=== PATIENT | female | born 1960 | race Caucasian/White ===

== ENCOUNTER 2022-01-07 17:25 | Emergency (ER) | payer OTHER, BC, SELFPAY ==
[2022-01-07 18:05] VITALS: BP 142/70; PULSE 71; RESP 18; TEMP 36.2; O2SAT 99; BMI 27.4
[2022-01-07 18:21] VITALS: BP 142/70; PULSE 71; RESP 18; O2SAT 99
--- NOTE | 2022-01-07 18:38 | ED_ITS ---
HPI - General Adult General: Chief complaint: General Medical Stated complaint: thinks its a rx to new meds, swelling in legs Time Seen by Provider: 01/07/22 18:11 History of Present Illness: Patient is a 61-year-old female comes to the ED with bilateral lower extremity swelling. Symptoms started approximately 3 days ago. Denies any shortness of breath, chest pain or hemoptysis. Patient has neuropathy in both of her legs which causes some pain and she was recently started on Lyrica back on December 30 by her PCP. She then saw her PCP again after leg swelling started and they told her it is likely due to the Lyrica and put her on a diuretic to help with the edema. She still having some pain and swelling and took her first dose of diuretic today. Associated symptoms: Deny chest pain, dyspnea, headache(s), nausea, rash, palpitations or vomiting Review of Systems Const: Denies: fever(s), chills or fatigue Eyes: Denies: change in vision or eye discomfort ENMT: Denies: throat pain, odynophagia, nasal discharge or nasal congestion Card: Reports: edema (Bilateral lower extremity edema.); Denies: chest pain, palpitations, swelling of feet/ankles, dyspnea on exertion or orthopnea Resp: Denies: dyspnea, productive cough or non-productive cough GI: Denies: abdominal pain, nausea, vomiting, diarrhea, constipation or hematochezia : Denies: flank pain, dysuria or hematuria Musc: Denies: neck pain, back pain or extremity swelling Skin/Breast: Denies: rash or new lesions Neuro: Denies: headache(s), numbness in extremities or weakness in extremities [facility] ED PFSH: Medical History Diabetes Neuropathy No pertinent family history Physical Exam Const: COMMON NORMALS: no acute distress, patient oriented x3 and alert GENERAL APPEARANCE: cooperative and comfortable HENMT: COMMON NORMALS: normocephalic HEAD & SCALP: normocephalic MOUTH: Normal oral and palatal mucosa present THROAT: posterior oropharynx normal and uvula midline Neck/C-Spine: COMMON NORMALS: supple GENERAL: Yes normal visual inspection Resp: COMMON NORMALS: normal respiratory effort, No retractions, No use of accessory muscles and clear to auscultation bilaterally AUSCULTATION: clear to auscultation bilaterally Cardio: COMMON NORMALS: regular rate, regular rhythm, S1 normal heart sound present, S2 normal heart sound present, No gallops present (Cardio), No clicks present (Cardio), No murmurs present (Cardio) and Peripheral pulses 2+ throughout RATE: regular rate RHYTHM: regular rhythm HEART SOUNDS: S1 normal heart sound present and S2 normal heart sound present PERIPHERAL PULSES: Peripheral pulses 2+ throughout GI: COMMON NORMALS: Normal to inspection, nondistended, normoactive bowel sounds present, Soft to palpation, non-tender and no masses PALPATION: Yes Soft to palpation : COMMON NORMALS: Yes no CVA tenderness BLADDER/KIDNEY EXAM: Yes no CVA tenderness Back/Pelvis: COMMON NORMALS: no CVA tenderness Extremity: NARRATIVE EXTREMITY EXAM: Patient has bilateral lower extremity edema that is nonpitting. Neuro: COMMON NORMALS: patient oriented x3 and moves all extremities SENSORIUM/ORIENTATION: Yes alert Skin: GENERAL SKIN EXAM: dry skin Course Vital Signs: Vital signs: Vital Signs Temperature 97.2 F L 01/07/22 18:05 Pulse Rate 71 01/07/22 18:21 Respiratory Rate 18 01/07/22 18:21 Blood Pressure 142/70 01/07/22 18:21 Pulse Oximetry 99 01/07/22 18:21 [facility] - General Adult Medical Decision Making Patient is a 59-year-old female comes to the ED with bilateral lower extremity swelling. Symptoms started shortly after she started taking Lyrica. She has a history of diabetes and peripheral neuropathy. Patient saw her PCP and they told her bilateral lower extremity swelling is likely due to side effect of her Lyrica medication. She was given a prescription of a diuretic to help with the swelling. She took her first dose today. Denies any chest pain, shortness of breath or hemoptysis. Patient appears nontoxic in no acute distress or pain. Vitals are stable. She has some mild nonpitting edema to bilateral lower extremities. The rest of exam is benign. Patient was diagnosed of medication side effect of bilateral lower extremity edema. She was told to continue taking her diuretic to help with edema. Follow-up with PCP in the next week for reevaluation. Return ED precautions given. Patient understood and agreed with plan. Discharge Plan Discharge Patient Disposition: Home Clinical Impression: Medication side effect, Bilateral lower extremity edema Condition: Stable Prescriptions: New Celebrex 100 mg capsule 100 mg PO BID PRN (Reason: pain) Qty: 20 0RF Discharge Orders: Discharge ED (Routine); Ordered 01/07/22 Ordered By: Mikie Martinez Referrals: Conchita Dewey MD [Primary Care Provider] - Discharge Diet: Regular Discharge Activity: Increase activity as tolerated Patient Instructions: Leg Edema (ED), Adverse Drug Reaction (ED) Activity Restrictions/Additional Instructions: Follow-up with medical provider as directed in the next 3 to 5 days reevaluation. Take medications as prescribed. Elevate legs throughout the day to help with swelling. You can wear compression stockings as well to help with leg edema. Continue taking your previously prescribed diuretic to help with swelling as well. Return to the ER or your medical provider if condition worsens. Please read and understand discharge instructions. Thank you for choosing [facility] for your healthcare needs today. Please realize this is an emergency room and that we are providing you with a medical screening exam and this may not be complete and all inclusive of all the testing and or work up that you may need to determine your ailment or severity of your illness. It is very important that you follow up as instructed or that you return to the Emergency Department should you have concerns or if your condition changes or worsens in any way. Coding Level of Care Code ED Broaching Machine Operator for [place] Fwfredis Exam Comprehensive
[2022-01-07] MEDS: HYDROcodone-acetaminophen 7.5-325 mg Tablet 1 TAB PO (18:46)
[2022-01-07] MEDS: dexamethasone 10 mg/mL INJ IM (18:48)
== END 2022-01-07 19:01 | disposition home or self-care (01) ==
PROVIDERS: Emergency Provider Physician Assistant; PCP Family Medicine
DX: M79.89 Other specified soft tissue disorders (principal); T42.6X5A Adverse effect of other antiepileptic and sedative-hypnotic drugs, initial encounter; E11.42 Type 2 diabetes mellitus with diabetic polyneuropathy
CPT/HCPCS: 96372; 99283; J1100

== ENCOUNTER 2022-09-01 08:30 | Emergency (ER) | payer BC, MEDICAID, SELFPAY ==
[2022-09-01 08:43] VITALS: BP 154/126; PULSE 68; RESP 16; TEMP 36.7; O2SAT 98
--- NOTE | 2022-09-01 09:05 | ED_ITS ---
HPI - Extremity Problem General: Chief complaint: Extremity Problem,Nontraumatic Stated complaint: left foot pain Time Seen by Provider: 09/01/22 08:33 Source: patient Mode of arrival: ambulatory Limitations: no limitations History of Present Illness: Patient is a 61-year-old female presents to ED today with complaint of left foot and ankle pain over the past 2 days. Patient states she has had similar pains previously that she attributes to neuropathy . Patient states she is a diabetic. She rarely checks her blood glucose. Patient states she has been on medications for the neuropathy including gabapentin but can no longer take them due to unwanted side effects. Patient states when she has had similar pains previously they have improved with a steroid shot . Patient has not noticed any swelling or redness to her foot. She states her feet are often cool to the touch and has been told previously she has poor circulation. She has not had any injury or trauma to her foot. She describes the pain in her foot as a nerve or electric like . MD Complaint: extremity pain Onset (ago): day(s) Pain Consistency: intermittent Location: left and other (foot/ankle) Quality: stabbing, sharp and other ( nerve like ) Radiation: none Relieving factors: other (previously steroids have helped) Exacerbating factors: nothing Associated symptoms: Reports no associated symptoms; Deny chest pain, fever(s) or rash Review of Systems Const: Denies: fever(s), chills, body aches, fatigue or malaise Card: Denies: chest pain Resp: Denies: dyspnea GI: Denies: abdominal pain, nausea, vomiting or diarrhea Musc: Reports: extremity pain; Denies: neck pain, back pain, extremity swelling, joint pain, joint swelling, joint redness, joint warmth, joint stiffness, limited range of motion, muscle cramps, muscle weakness or decrease in muscle mass Skin/Breast: Denies: rash Neuro: Reports: sensory changes (chronic diabetic neuropathy); Denies: headache(s), numbness in extremities, weakness in extremities or difficulty walking [facility] PFSH: Medical History Diabetes Neuropathy No pertinent family history PVD (peripheral vascular disease) Social History Smoking and tobacco status: current every day smoker Female Reproductive History: Spontaneous abortions: No Physical Exam Const: COMMON NORMALS: no acute distress, patient oriented x3, no limitations, alert and well nourished GENERAL APPEARANCE: cooperative ORIENTA TION/CONSCIOUSNESS: Yes awake, Yes oriented to person, Yes oriented to place and Yes oriented to time Resp: COMMON NORMALS: normal respiratory effort and clear to auscultation bilaterally AUSCULTATION: clear to auscultation bilaterally Cardio: COMMON NORMALS: regular rate and regular rhythm RATE: regular rate RHYTHM: regular rhythm Extremity: COMMON NORMALS: full ROM, capillary refill normal, no joint enlargement, no calf tenderness and no pedal edema GENERAL: Yes normal exam except as noted LEFT LOWER EXTREMITY: Yes foot & digits OTHER: pt with chronic stasis skin changes; patient has doppler PT/DP pulses bilaterally with normal cap refill; there is no redness, pallor, coolness/warmth, or swelling noted to the left foot and ankle where patient complains of pain; there are no skin sores/ulcers/breakdown Neuro: COMMON NORMALS: patient oriented x3, moves all extremities and no focal motor deficits SENSORIUM/ORIENTATION: Yes alert, Yes oriented to person, Yes oriented to place and Yes oriented to time Course Vital Signs: Vital signs: Vital Signs Temperature 98.1 F 09/01/22 08:43 Pulse Rate 68 09/01/22 09:16 Respiratory Rate 16 09/01/22 08:43 Blood Pressure 154/126 09/01/22 08:43 Pulse Oximetry 97 09/01/22 09:16 Oxygen Delivery Me thod 09/01/22 09:16 MDM - Extremity (Nontraumatic) Medical Decision Making This seems to be an ongoing problem for patient. I do not see any acute or emergent findings on her physical exam at this time. I think she would benefit from podiatry evaluation and information has been placed for case management. DDx includes diabetic neuropathy, peripheral arterial disease, gout, nerve impingement as causes for her discomfort. She states she has benefited from IM steroids previously so these were provided today. If she is not able to get into podiatry recommend she follow-up with her PCP in approximately a week. Return ED precautions given. Discharge Plan Discharge Patient Disposition: Home Clinical Impression: Left foot pain Condition: Stable Prescriptions: No Action meloxicam 15 mg tablet 15 mg PO DAILY simvastatin 40 mg tablet 40 mg PO DAILY glipizide 10 mg tablet 10 mg PO DAILY Label Comments: 2 tabs in AM and 1 tab in PM cyclobenzaprine 10 mg tablet 10 mg PO TID 5 Days Qty: 15 0RF Rx Instructions: may take 1/2 to 1 tab Discharge Orders: Discharge ED (Routine); Ordered 09/01/22 Ordered By: Lorena Cuellar Referrals: Conchita Dewey MD [Primary Care Provider] - Coding Level of Care Code ED Banquet Pilot for [place] Song
[2022-09-01 09:16] VITALS: PULSE 68; O2SAT 97
[2022-09-01 09:40] VITALS: BP 138/88; PULSE 71; O2SAT 97
--- NOTE | 2022-09-01 09:43 | DCPLANNER ---
Addendum entered by Rossana Montoya 09/04/22 14:38: Patient had a follow up appointment scheduled - appointment was cancelled Original Note: grain manager had message to schedule a follow up appointment for patient with podiatry. grain manager sent patients information to the front office staff at [facility]. Patients information will be printed and reviewed. Clinic will call patient with appointment information.
== END 2022-09-01 09:40 | disposition home or self-care (01) ==
PROVIDERS: Emergency Provider Physician Assistant; PCP Family Medicine
DX: M79.672 Pain in left foot (principal); Z79.84 Long term (current) use of oral hypoglycemic drugs; E11.9 Type 2 diabetes mellitus without complications; F17.210 Nicotine dependence, cigarettes, uncomplicated
CPT/HCPCS: 96372; 99284; J2930

== ENCOUNTER 2022-09-11 10:11 | Emergency (ER) | payer OTHER, BC, MEDICAID, SELFPAY ==
[2022-09-11] VITALS (15 sets, daily range): BP systolic 120–153; BP diastolic 55–80; PULSE 65–85; RESP 14–25; TEMP 36.8; O2SAT 94–100
--- NOTE | 2022-09-11 11:12 | CT_ITS ---
WS: [id number] CT pelvis TECHNIQUE: Contrast-enhanced CT of the pelvis with coronal and sagittal reformatted images. CLINICAL INFORMATION: perirectal abscess COMPARISON: CT abdomen pelvis 2019 DLP: 469.[address] scans at [facility] use at least one of these dose optimization techniques: automated e xposure control; mA and/or kV adjustment per patient size (includes targeted exams where dose is matc hed to clinical indication); or iterative reconstruction. FINDINGS: Bulky fibroid uterus. Heterogeneously enhancing fibroid measuring 4.7 x 3.1 CM. Small fat-containing inguinal hernias. Normal sigmoid colon. Sigmoid diverticulosis. No evidence of acute diverticulitis. There is inflammatory stranding and edema in the RIGHT inguinal crease anteriorly with skin thickenin g and cellulitis. No drainable abscess or fluid collection. Inflammatory stranding and edema extends along the RIGHT inguinal crease and slightly into the RIGHT labia. Edema along the RIGHT pubococcygeu s muscle and obturator internus. Lobulation and edema extends into the adjacent deep soft tissues. Mild degenerative arthritis both hips. Vascular calcification. CT/CT pelvis w con* [id number] IMPRESSION: 1. Inflammatory stranding and edema along the RIGHT inguinal crease adjacent t o the labia and UG diaphragm with associated skin thickening and cellulitis. No evidence of drainable abscess or fluid collection. This involves the adjacent deep pelvic and inguinal soft tissues. 2. No evidence of perianal or rectal fistulous track or abscess. 3. Fibroid uterus. 4. Sigmoid diverticulosis. No evidence of acute diverticulitis.
--- NOTE | 2022-09-11 11:17 | ED_ITS ---
HPI - General Adult General: Chief complaint: General Medical Stated complaint: Boil on right inner thigh Time Seen by Provider: 09/11/22 10:37 Source: patient Mode of arrival: ambulatory History of Present Illness: 61-year-old female presents emergency room with complaint of a boil on the perineum on the right side of the rectum. She has not had any drainage from it is been there for the last 2 weeks progressively worsening increasing in size and tenderness. She has not had any fever sweats or chills. Patient is diabetic. No previous perirectal cysts. Onset (ago): day(s) (2) Location: pelvis Severity: severe Quality: sharp Pain Consistency: constant Relieving factors: none and immobilization Exacerbating factors: none Associated symptoms: Reports nausea; Deny chest pain, confusion, cough, diaphoresis, decreased appetite, dyspnea, fevers/chills, headache(s), malaise, rash, palpitations, seizures, short of breath, syncope, vomiting or weakness Treatments prior to arrival: none Review of Systems Const: Denies: fever(s), chills, fatigue, malaise or diaphoresis ENMT: Denies: throat pain, ear or mastoid pain, nasal discharge or nasal congestion Card: Denies: chest pain, palpitations or syncope Resp: Denies: dyspnea GI: Reports: nausea; Denies: abdominal pain or vomiting : Denies: flank pain, difficulty voiding, dysuria, urinary frequency or urinary urgency Skin/Breast: Denies: rash Neuro: Denies: headache(s) or confusion PFS ED PFSH: Medical History Diabetes Neuropathy No pertinent family history PVD (peripheral vascular disease) Social History Smoking and tobacco status: current every day smoker Female Reproductive History: Spontaneous abortions: No Physical Exam Const: GENERAL APPEARANCE: cooperative and comfortable ORIENTATION/CONSCIOUSNESS: Yes awake, Yes oriented to person, Yes oriented to place and Yes oriented to time HENMT: COMMON NORMALS: normocephalic, atraumatic and hearing grossly normal bilaterally HEAD & SCALP: normocephalic and atraumatic Resp: COMMON NORMALS: normal respiratory effort, No retractions, No use of accessory muscles and clear to auscultation bilaterally AUSCULTATION: clear to auscultation bilaterally Cardio: COMMON NORMALS: regular rate, regular rhythm and No murmurs present (Cardio) RATE: regular rate RHYTHM: regular rhythm GI: COMMON NORMALS: Soft to palpation and No hepatosplenomegaly present AUSCULTATION: Yes normoactive bowel sounds PALPATION: Yes Soft to palpation, No Tenderness to palpation present (GI), No Guarding due to palpation present (GI) and Yes No hepatosplenomegaly present Back/Pelvis: OTHER: Swollen tender erythematous nodule in the gluteal fold medially on the right. It is fluctuant to palpation indurated and erythematous Extremity: COMMON NORMALS: normal to inspection, capillary refill normal, no clubbing, cyanosis or edema, no calf tenderness and no pedal edema Neuro: SENSORIUM/ORIENTATION: Yes oriented to person, Yes oriented to place and Yes oriented to time Procedures Abscess I/D Site: traci-rectal Side (if applicable): right Sedation/analgesia: midazolam and fentanyl Local Anesthetic: lidocaine 1% Technique: incised with #11 blade Amount of fluid expressed (mL): 5 Packing used?: plain Procedural Sedation Indication: incision and drainage of abscess Preparation: sed middle school teacher applied, pulse oximeter, supplemental O2 applied, reversal agents at bedside, suction/airway equipment at bedside and IV secured Fentanyl: IV Fentanyl dose (mcg): 50 Midazolam: IV Midazolam dose (mg): 2 Patient Tolerated Procedure: well Complications: none Course Vital Signs: Vital signs: Vital Signs Temperature 98.2 F 09/11/22 10:16 Pulse Rate 65 09/11/22 14:43 Respiratory Rate 14 09/11/22 14:45 Blood Pressure 140/62 09/11/22 14:43 Pulse Oximetry 99 09/11/22 14:45 Oxygen Delivery Me thod 09/11/22 14:43 MDM - General Adult Medical Decision Making PurulenceCT does not show any deep structures affected. Procedural sedation incision and drainage with 11 blade expressed approximately 5 mils of fluid which was cultured. Wound packed advised to return to outpatient care tomorrow at the walk-in clinic to have it removed started on Augmentin and hydrocodone for pain Medical Records I reviewed the patient's medical records. Lab Data I reviewed the patient's lab results. 09/11/22 11:30 09/11/22 11:[address] 09/11/22 11:12 IMPRESSION: 1. Inflammatory stranding and edema along the RIGHT inguinal crease adjacent to the labia and UG diaphragm with associated skin thickening and cellulitis. No evidence of drainable abscess or fluid collection. This involves the adjacent deep pelvic and inguinal soft tissues. 2. No evidence of perianal or rectal fistulous track or abscess. 3. Fibroid uterus. 4. Sigmoid diverticulosis. No evidence of acute diverticulitis. Laboratory Results WBC 15.5 10^3/uL (4.0-10.0) H 09/11/22 11:30 RBC 4.88 10^6/uL (4.1-5.3) 09/11/22 11:30 Hgb 14.6 g/dL (11.5-15.3) 09/11/22 11:30 Hct 43.7 % (37.0-47.0) 09/11/22 11:30 MCV 89.5 fl (81-99) 09/11/22 11:30 MCH 29.9 pg (28.0-34.0) 09/11/22 11:30 MCHC 33.4 g/dL (30.0-36.0) 09/11/22 11:30 RDW 12.0 % (12.1-15.1) L 09/11/22 11:30 Plt Count 350 10^3/cmm (130-400) 09/11/22 11:30 MPV 8.7 fL (7.4-10.4) 09/11/22 11:30 Neut % (Auto) 79.2 % 09/11/22 11:30 Lymph % (Auto) 11.4 % 09/11/22 11:30 [place] % (Auto) 8.1 % 09/11/22 11:30 Eos % (Auto) 0.5 % 09/11/22 11:30 Baso % (Auto) 0.3 % 09/11/22 11:30 Neut # (Auto) 12.31 10^3/uL (1.8-7.7) H 09/11/22 11:30 Lymph # (Auto) 1.8 10^3/uL (0.8-4.8) 09/11/22 11:30 [place] # (Auto) 1.3 10^3/uL (0.2-0.9) H 09/11/22 11:30 Eos # (Auto) 0.1 10^3/uL (0.0-0.8) 09/11/22 11:30 Baso # (Auto) 0.1 10^3/uL (0.0-0.1) 09/11/22 11:30 Nucleated RBC % (auto) 0 % 09/11/22 11:30 Nucleated RBCs # 0.0 /100WBC 09/11/22 11:30 Sodium 133 mmol/L (136-145) L 09/11/22 11:30 Potassium 3.8 mmol/L (3.5-5.1) 09/11/22 11:30 Chloride 94 mmol/L (98-107) L 09/11/22 11:30 Carbon Dioxide 24 mmol/L (22-29) 09/11/22 11:30 Anion Gap 18.8 (5-19) 09/11/22 11:30 BUN 7 mg/dL (8-23) L 09/11/22 11:30 Creatinine 0.6 mg/dL (0.5-0.9) 09/11/22 11:30 GFR Calculation 101.3 mL/min (90-130) 09/11/22 11:30 Glucose 204 mg/dL (65-115) H 09/11/22 11:30 Calculated Osmolality 280 mOsm/kg (285-295) L 09/11/22 11:30 Calcium 9.0 mg/dL (8.5-10.5) 09/11/22 11:30 Discharge Plan Discharge Patient Disposition: Home Clinical Impression: Abscess of perineum Condition: Stable Prescriptions: New amoxicillin-pot clavulanate 875-125 mg tablet 1 tab PO BID Qty: 20 0RF hydrocodone-acetaminophen 5-325 mg tablet 1 tab PO Q6H PRN (Reason: pain) Qty: 15 0RF Discharge Orders: Discharge ED (Routine); Ordered 09/11/22 Ordered By: Donte Cervantes Referrals: Conchita Dewey MD [Primary Care Provider] - Discharge Diet: Usual diet Discharge Activity: Increase activity as tolerated Patient Instructions: Abscess Incision and Drainage (DC), Opioid Safety, Pain Management, Sitz Bath Activity Restrictions/Additional Instructions: You were seen today for an abscess on the perineum. It was incised and drained with packing placed you should return to urgent care tomorrow to have the packing removed. You are given a prescription for antibiotics that you should start today 1 pill twice daily for 10 days you are also given a pain medication. Recommend sitz bath's as well. Coding Level of Care Code ED Media/Instructional Designer for [place] Song Exam Detailed
[2022-09-11 11:55] LABS: Basophils # 0.1 10^3/uL (0.0-0.1); Basophils % 0.3 %; Eosinophils # 0.1 10^3/uL (0.0-0.8); Eosinophils % 0.5 %; Hematocrit 43.7 % (37.0-47.0); Hemoglobin 14.6 g/dL (11.5-15.3); Lymphocytes # 1.8 10^3/uL (0.8-4.8); Lymphocytes % 11.4 %; Mean Corpuscular HGB Conc 33.4 g/dL (30.0-36.0); Mean Corpuscular Hemoglobin 29.9 pg (28.0-34.0); Mean Corpuscular Volume 89.5 fl (81-99); Mean Platelet Volume 8.7 fL (7.4-10.4); Monocytes # 1.3 10^3/uL (0.2-0.9); Monocytes % 8.1 %; Neutrophils # 12.31 10^3/uL (1.8-7.7); Neutrophils % 79.2 %; Nucleated Red Blood Cells % 0 %; Platelet Count 350 10^3/cmm (130-400); Red Blood Count 4.88 10^6/uL (4.1-5.3); White Blood Count 15.5 10^3/uL (4.0-10.0)
[2022-09-11] MEDS: iohexol 350 mg/mL 500 mL Btl (per mL) IV (12:32)
[2022-09-11] MEDS: ketorolac 30 mg/mL INJ IVP (12:36)
[2022-09-11] MEDS: ondansetron 2 mg/ML SDV 2 mL 4 MG IVP (12:36)
[2022-09-11 13:10] LABS: Anion Gap 18.8 (5-19); Blood Urea Nitrogen 7 mg/dL (8-23); Carbon Dioxide 24 mmol/L (22-29); Chloride 94 mmol/L (98-107); Creatinine Clr Calc Pharmacy 97.0405; Glomerular Filtration Rate 101.3 mL/min (90-130); Glucose 204 mg/dL (65-115); Osmolality Calculated 280 mOsm/kg (285-295); Potassium 3.8 mmol/L (3.5-5.1); Sodium 133 mmol/L (136-145)
[2022-09-11] MEDS: fentaNYL 50 mcg/mL INJ 2mL IVP (14:45)
[2022-09-11] MEDS: midazolam 1 mg/mL INJ 2 mL 2 MG IVP (14:45)
== END 2022-09-11 15:30 | disposition home or self-care (01) ==
PROVIDERS: Emergency Provider Family Medicine; PCP Nurse Practitioner Family
DX: L02.215 Cutaneous abscess of perineum (principal); E11.9 Type 2 diabetes mellitus without complications; F17.210 Nicotine dependence, cigarettes, uncomplicated
CPT/HCPCS: 56405; 72193; 80048; 85025; 87040; 87070; 87075; 87205; 96374; 96375; 99285; J1885; J2250; J2405; J3010; Q9967

== ENCOUNTER 2023-03-16 01:38 | Emergency (ER) | payer BC, MEDICAID, SELFPAY ==
[2023-03-16 01:42] VITALS: BP 150/62; PULSE 74; RESP 16; TEMP 36.6; O2SAT 99; BMI 27.4
[2023-03-16 01:45] VITALS: PULSE 70; RESP 18; O2SAT 99
--- NOTE | 2023-03-16 01:46 | ED_ITS ---
HPI - Extremity Problem General: Chief complaint: Extremity Problem,Nontraumatic Stated complaint: Left Foot Pain' Time Seen by Provider: 03/16/23 01:39 History of Present Illness: 62-year-old female comes in today with bilateral feet pain. Patient has a history of peripheral neuropathy. Patient usually is able to manage it at home but gets flareup where she has to be seen by a medical provider. Patient has a history of diabetes but does not take routine medications for it. Patient appears nontoxic. Patient appears in mild to moderate pain. Patient reports in the past a steroid shot usually helps with her discomfort. Patient denies any injury. Associated symptoms: Deny chest pain, fever(s) or rash Review of Systems Const: Denies: fever(s) Card: Denies: chest pain Resp: Denies: dyspnea Musc: Reports: extremity pain Skin/Breast: Denies: rash PFSH ED PFSH: Medical History Diabetes Neuropathy No pertinent family history PVD (peripheral vascular disease) Social History Smoking and tobacco status: current every day smoker Female Reproductive History: Spontaneous abortions: No Physical Exam Const: COMMON NORMALS: alert HENMT: COMMON NORMALS: normocephalic HEAD & SCALP: normocephalic Neck/C-Spine: COMMON NORMALS: full ROM Resp: COMMON NORMALS: normal respiratory effort Cardio: COMMON NORMALS: regular rate RATE: regular rate Back/Pelvis: COMMON NORMALS: thoracic and lumbar spine normal to inspection and no thoracic nor lumbar tenderness Extremity: NARRATIVE EXTREMITY EXAM: No significant edema to lower extremities. No significant redness. Pulses are intact. Thinning and tightening of the skin is noted to the bilateral lower extremities. Neuro: SENSORIUM/ORIENTATION: Yes alert Course Vital Signs: Vital signs: Vital Signs Temperature 97.9 F 03/16/23 01:42 Pulse Rate 70 03/16/23 01:45 Respiratory Rate 18 03/16/23 01:45 Blood Pressure 150/62 03/16/23 01:42 Pulse Oximetry 99 03/16/23 01:45 Oxygen Delivery Me thod Room Air 03/16/23 01:42 MDM - Extremity (Nontraumatic) Medical Decision Making Patient comes in with bilateral lower extremity pain and discomfort. Patient appears nontoxic. Patient denies any respiratory difficulties or chest pain. On exam patient has some thinning and tightening of the skin to bilateral feet. Pulses are intact. Cap refill is intact. Feet are tender to touch. Differential diagnosis includes peripheral neuropathy, peripheral vascular disease, scleroderma, lumbar radiculopathy. Pain is chronic for patient which waxes and wanes. Patient usually has relief with steroids. Patient was given 10 mg of dexamethasone and a short course of hydrocodone to use as needed for severe pain. Patient otherwise will manage it with Tylenol and ibuprofen that she uses for her mild to moderate pain. Strongly recommended patient follow-up with primary care to reevaluate her diabetes and to continue routine care. Patient stated understanding and agreed to plan. Discharge Plan Discharge Patient Disposition: Home Clinical Impression: Peripheral neuralgia Condition: Stable Prescriptions: Continued hydrocodone-acetaminophen 5-325 mg tablet 1 tab PO Q6H PRN (Reason: pain) Qty: 15 0RF No Action doxycycline hyclate 100 mg tablet 100 mg PO BID 10 Days Qty: 20 0RF amoxicillin-pot clavulanate 875-125 mg tablet 1 tab PO BID Qty: 20 0RF Discharge Orders: Discharge ED (Routine); Ordered 03/16/23 Ordered By: aHider Rothman Discharge Diet: Usual diet Discharge Activity: Increase activity as tolerated Patient Instructions: Opioid Safety, Pain Management Activity Restrictions/Additional Instructions: Monitor blood sugar. Drink plenty of water and fluids. Count carbohydrates to control blood glucose. Keep carbohydrates to less than 120 g a day. This may be a good option to help control your blood sugar without medication. However, as diabetes progresses other medications or insulin may be required. Your neuropathy can be worsened by poor control of blood glucose. Follow-up with primary care for recheck. Return to ED for worsening symptoms such as increased redness and swelling to the lower extremities, high fever, chest pain or shortness of breath. Coding Level of Care Code ED Citizen Participation Specialist for [facility] Song
[2023-03-16] MEDS: HYDROcodone-acetaminophen 7.5-325 mg Tablet 1 TAB PO (01:57)
[2023-03-16] MEDS: dexamethasone 10 mg/mL INJ IM (01:57)
--- NOTE | 2023-03-24 13:58 | DCPLANNER ---
Addendum entered by Rossana Montoya 03/24/23 14:00: Patient called home health care case manager back - stated that she sees Airam Jones. Original Note: import manager called patient due to no primary care physician - no answer at this time.
== END 2023-03-16 02:05 | disposition home or self-care (01) ==
PROVIDERS: Emergency Provider Nurse Practitioner Family
DX: G58.8 Other specified mononeuropathies (principal); E11.9 Type 2 diabetes mellitus without complications; F17.210 Nicotine dependence, cigarettes, uncomplicated
CPT/HCPCS: 96372; 99284; J1100

== ENCOUNTER → 2023-07-07 09:39 | Outpatient (BNVA) | payer BC, MEDICAID, SELFPAY | PROVIDERS: Visit Provider Nurse Practitioner | DX: E11.9 Type 2 diabetes mellitus without complications (principal) | CPT/HCPCS: 80053; 83036; 85025 ==

== ENCOUNTER → 2023-10-22 09:16 | Outpatient (BNVA) | payer BC, MEDICAID, SELFPAY | PROVIDERS: PCP Nurse Practitioner; Referring Provider Nurse Practitioner; Visit Provider Nurse Practitioner | DX: I73.9 Peripheral vascular disease, unspecified (principal); E11.40 Type 2 diabetes mellitus with diabetic neuropathy, unspecified | CPT/HCPCS: 80053; 80061; 81000; 83036; 85025 ==

== ENCOUNTER → 2024-02-02 14:02 | Outpatient (BNVA) | payer BC, MEDICAID, SELFPAY | PROVIDERS: PCP Nurse Practitioner; Visit Provider Nurse Practitioner | DX: E11.9 Type 2 diabetes mellitus without complications (principal) | CPT/HCPCS: 83036 ==

== ENCOUNTER → 2024-03-09 09:19 | Outpatient (BNVA) | payer BC, MEDICAID, SELFPAY | PROVIDERS: PCP Nurse Practitioner; Visit Provider Nurse Practitioner | DX: E11.621 Type 2 diabetes mellitus with foot ulcer (principal); L97.509 Non-pressure chronic ulcer of other part of unspecified foot with unspecified severity; M19.071 Primary osteoarthritis, right ankle and foot | CPT/HCPCS: 73630 ==

== ENCOUNTER 2024-03-19 17:03 | Emergency (ER) | payer BC, MEDICAID, SELFPAY ==
[2024-03-19] VITALS (7 sets, daily range): BP systolic 134–167; BP diastolic 58–74; PULSE 59–66; RESP 17; TEMP 36.9; O2SAT 98–99; BMI 28.3
--- NOTE | 2024-03-19 18:27 | USR_ITS ---
PROCEDURE INFORMATION: Exam: US Duplex Left Lower Extremity Arteries Or Arterial Bypass Grafts Exam date and time: 03/19/2024 6:36 PM Age: 63 years old Clinical indication: Pain; Leg, upper and leg, lower; Left; Additional info: Leg pain TECHNIQUE: Imaging protocol: Left Real-time duplex scan of the arteries or arterial bypass grafts of the left lower extremity with 2-D donald scale, color Doppler flow and spectral waveform analysis. Images documented and saved. COMPARISON: CT pelvis w con* [id number] 09/11/2022 12:25 PM FINDINGS: Left external iliac artery: Left mid to distal common iliac artery biphasic waveforms reflecting a degree of stenosis. Left common femoral artery: Left common femoral, superficial femoral, posterior tibial, dorsalis pedis and popliteal artery monophasic waveforms reflecting a degree of stenosis. Left superficial femoral artery: See above. Left popliteal artery: See above. Left calf/foot arteries: See above. US/CV arterial duplex [facility] [id number] IMPRESSION: 1. Left mid to distal common iliac artery biphasic waveforms reflecting a degree of stenosis. 2. Left common femoral, superficial femoral, posterior tibial, dorsalis pedis and popliteal artery monophasic waveforms reflecting a degree of stenosis.
--- NOTE | 2024-03-19 18:34 | ED_ITS ---
HPI - Wound/Laceration 2 General: Chief Complaint: Wound/Laceration Stated Complaint: foot pain (both feet) Time Seen by Provider: 03/19/24 18:23 Source: patient Mode of arrival: ambulatory Limitations: no limitations History of Present Illness: 63-year-old female who has a history of peripheral vascular disease and diabetic foot ulcers she sees wound care for foot ulcer to right foot she states that today she has had some pain in her left foot and noticed a blister to her third toe no color changes no fevers denies any worsening proving factors. Associated symptoms: Denies chills, fever(s), nausea or vomiting Review of Systems 2 Const: Denies: fever(s), chills, body aches or change in appetite ENMT: Denies: throat pain or dental pain Card: Denies: chest pain Resp: Denies: dyspnea GI: Denies: abdominal pain, nausea, vomiting or diarrhea Musc: Reports: extremity pain; Denies: neck pain or back pain Skin/Breast: Denies: rash Neuro: Denies: headache(s) PFSH ED 2 PFSH: Medical History PVD (peripheral vascular disease) Neuropathy Diabetes No pertinent family history Family History Grandmother Cancer breast-- Family/Other Cancer nieces x 2- breast aunt- breast Mother Chronic kidney disease (CKD) Grandfather Chronic kidney disease (CKD) maternal Father Alzheimer's dementia Sister Alzheimer's dementia Denies family history of Diabetes Clotting disorder Heart disease Bleeding disorder Thyroid disease Stroke Social History Smoking and tobacco/nicotine status: former use of tobacco/nicotine Female Reproductive History: Para: 4 Spontaneous abortions: No Physical Exam 2 Const: COMMON NORMALS: no acute distress, patient oriented x3 and healthy appearing HENMT: COMMON NORMALS: normocephalic and atraumatic HEAD & SCALP: n ormocephalic and atraumatic Neck/C-Spine: COMMON NORMALS: full ROM and supple Chest: COMMONS NORMALS: normal inspection of the chest Resp: COMMON NORMALS: normal respiratory effort Cardio: COMMON NORMALS: regular rate, regular rhythm and No murmurs present (Cardio) RATE: regular rate RHYTHM: regular rhythm Extremity: NARRATIVE EXTREMITY EXAM: Blister noted to left third toe pulses palpable no erythema noted Neuro: COMMON NORMALS: patient oriented x3, moves all extremities and no focal motor deficits Psych: COMMON NORMALS: mental status grossly normal, Normal thought process present and cooperative THOUGHT PROCESS: Normal thought process present Skin: COMMON NORMALS: no rashes or lesions noted and no wounds GENERAL SKIN EXAM: no rashes or lesions noted Course 2 Vital Signs: Vital signs: Vital Signs Temperature 98.4 F 03/19/24 17:11 Pulse Rate 66 03/19/24 18:33 Respiratory Rate 17 03/19/24 17:11 Blood Pressure 142/61 03/19/24 18:33 Pulse Oximetry 99 03/19/24 18:33 Oxygen Delivery Me thod Room Air 03/19/24 18:33 MDM - Wound/Laceration Medical Decision Making Patient presents here with foot pain is a diabetic foot ulcer she has no signs of infection did do an ultrasound left foot showed blood flow she does have a blister likely from rubbing she has no signs of any flexion she is follow-up with wound care return if worsening. Lab Data I reviewed the patient's lab results. 03/19/24 18:38 Radiology Impressions Duplex Scan Lower Extremity Artery 03/19/24 18:27 IMPRESSION: 1. Left mid to distal common iliac artery biphasic waveforms reflecting a degree of stenosis. 2. Left common femoral, superficial femoral, posterior tibial, dorsalis pedis and popliteal artery monophasic waveforms reflecting a degree of stenosis. Laboratory Results WBC 6.49 10^3/uL (3.29-11.43) 03/19/24 18:38 RBC 5.22 10^6/uL (3.85-5.65) 03/19/24 18:38 Hgb 15.60 g/dL (11.27-16.99) 03/19/24 18:38 Hct 47.5 % (36-47) H 03/19/24 18:38 MCV 91.0 fl (85-98) 03/19/24 18:38 MCH 29.9 pg (27-33) 03/19/24 18:38 MCHC 32.8 g/dL (30-55) 03/19/24 18:38 RDW 12.5 % (12.1-15.1) 03/19/24 18:38 Plt Count 231 10^3/cmm (157-399) 03/19/24 18:38 MPV 8.9 fL (7.4-10.4) 03/19/24 18:38 Neut % (Auto) 47.3 % 03/19/24 18:38 Lymph % (Auto) 40.5 % 03/19/24 18:38 [place] % (Auto) 6.5 % 03/19/24 18:38 Eos % (Auto) 4.6 % 03/19/24 18:38 Baso % (Auto) 0.8 % 03/19/24 18:38 Neut # (Auto) 3.07 10^3/uL (1.8-7.7) 03/19/24 18:38 Lymph # (Auto) 2.6 10^3/uL (0.8-4.8) 03/19/24 18:38 [place] # (Auto) 0.4 10^3/uL (0.2-0.9) 03/19/24 18:38 Eos # (Auto) 0.3 10^3/uL (0.0-0.8) 03/19/24 18:38 Baso # (Auto) 0.1 10^3/uL (0.0-0.1) 03/19/24 18:38 Nucleated RBC % (auto) 0 % 03/19/24 18:38 Nucleated RBCs # 0.0 /100WBC 03/19/24 18:38 All radiology interpretation(s) finalized by discharge Discharge Plan Discharge Patient Disposition: Home Clinical Impression: Diabetic foot ulcer, Acute pain of left foot Condition: Stable Prescriptions: No Action clindamycin HCl 300 mg capsule 300 mg PO TID Qty: 21 0RF hydrocodone-acetaminophen 5-325 mg tablet 1 tab PO BID PRN (Reason: pain) 5 Days Qty: 10 0RF Hold Instructions: Doctor's Order mupirocin 2 % ointment 1 applic topical BID Qty: 22 0RF pentoxifylline 400 mg tablet extended release 400 mg PO TID Qty: 90 3RF Rx Instructions: must administer with a meal/food hydrocodone-acetaminophen 5-325 mg tablet 1 tab PO BID PRN (Reason: pain) 10 Days Qty: 20 0RF glipizide 10 mg tablet 10 mg PO BID Qty: 180 2RF dapagliflozin propanediol [Farxiga] 10 mg tablet 10 mg PO DAILY Qty: 90 2RF simvastatin 10 mg tablet 10 mg PO DAILY Qty: 30 3RF Discharge Orders: Discharge ED (Routine); Ordered 03/19/24 Ordered By: Allegra Warren Referrals: Sayra Ann FNP [Primary Care Provider] - 4-7 days Discharge Diet: Advance as tolerated Discharge Activity: Resume usual activity Patient Instructions: Foot Care Coding Level of Care Code ED Internist for [facility] Song
[2024-03-19 19:10] LABS: Basophils # 0.1 10^3/uL (0.0-0.1); Basophils % 0.8 %; Eosinophils # 0.3 10^3/uL (0.0-0.8); Eosinophils % 4.6 %; Hematocrit 47.5 % (36-47); Lymphocytes # 2.6 10^3/uL (0.8-4.8); Lymphocytes % 40.5 %; Mean Corpuscular HGB Conc 32.8 g/dL (30-55); Mean Corpuscular Hemoglobin 29.9 pg (27-33); Mean Platelet Volume 8.9 fL (7.4-10.4); Monocytes # 0.4 10^3/uL (0.2-0.9); Monocytes % 6.5 %; Neutrophils # 3.07 10^3/uL (1.8-7.7); Neutrophils % 47.3 %; Nucleated Red Blood Cells % 0 %; Platelet Count 231 10^3/cmm (157-399); Red Blood Count 5.22 10^6/uL (3.85-5.65); Red Cell Distribution Width 12.5 % (12.1-15.1); White Blood Count 6.49 10^3/uL (3.29-11.43)
== END 2024-03-19 20:47 | disposition home or self-care (01) ==
PROVIDERS: Emergency Provider Emergency Medicine; PCP Nurse Practitioner
DX: E11.621 Type 2 diabetes mellitus with foot ulcer (principal); L97.519 Non-pressure chronic ulcer of other part of right foot with unspecified severity; S90.425A Blister (nonthermal), left lesser toe(s), initial encounter; X58.XXXA Exposure to other specified factors, initial encounter; E11.40 Type 2 diabetes mellitus with diabetic neuropathy, unspecified; Z87.891 Personal history of nicotine dependence; Z79.84 Long term (current) use of oral hypoglycemic drugs
CPT/HCPCS: 36415; 85025; 93926; 99284

== ENCOUNTER 2024-03-21 13:11 | Outpatient (CLI) | payer BC, MEDICAID, SELFPAY ==
--- NOTE | 2024-03-21 13:45 | CTR_ITS ---
PROCEDURE INFORMATION: Exam: CTA Abdominal Aorta and Bilateral Lower Extremities (Run-off) With Contrast Exam date and time: 03/21/2024 2:47 PM Age: 63 years old Clinical indication: Condition or disease; Other: Foot ulcer/diabetes; Prior surgery; Surgery date: 6+ months; Surgery type: Gb; Patient HX: Right lateral foot ulcer and left foot blister; Additional info: Decreased edwina with foot ulcer/diabetes TECHNIQUE: Imaging protocol: Computed tomographic angiography of the of the abdominal aorta, pelvis and bilateral lower extremities with contrast. 3D rendering (Not supervised by radiologist): MIP and/or 3D reconstructed images were created by the technologist. Radiation optimization: All CT scans at this facility use at least one of these dose optimization techniques: automated exposure control; mA and/or kV adjustment per patient size (includes targeted exams where dose is matched to clinical indication); or iterative reconstruction. Contrast material: OMNI 350; Contrast volume: 125 ml; Contrast route: INTRAVENOUS (IV); COMPARISON: CT abdomen pelvis w con* [id number] 10/10/2018 10:27 AM RADIATION DOSE METRICS: Total DLP (mGy-cm): 1561.32 FINDINGS: Aorta: The abdominal aorta demonstrates severe soft plaque in the infrarenal portion that causes a 60% stenosis by diameter. Ulceration is noted here. Celiac trunk and mesenteric arteries: No occlusion or significant stenosis. Renal arteries: No occlusion or significant stenosis. Right iliac arteries: No occlusion or significant stenosis. Right femoral/popliteal arteries: The right superficial femoral artery demonstrates heavy mixed plaque throughout its length causing multiple severe stenoses along with a short segment occlusion. A separate occlusion involves the popliteal artery. Right infrapopliteal arteries: The right infrapopliteal arteries demonstrate occlusion involving the tibioperoneal trunk but there is reconstitution of the peroneal and posterior tibial arteries. These arteries are patent down to the foot. The anterior tibial artery arises from the popliteal artery and is widely patent down to the foot. Left iliac arteries: The left common iliac artery demonstrates a 60% stenosis caused by soft plaque. Left femoral/popliteal arteries: The left superficial femoral artery demonstrates heavy calcified plaque throughout its length and there are multiple significant stenoses present. There is occlusion of the popliteal artery. Left infrapopliteal arteries: The left infrapopliteal arteries demonstrate reconstitution of the tibioperoneal trunk and the posterior tibial and peroneal arteries are widely patent down to the foot. The anterior tibial artery demonstrates long segment occlusion. Liver: No mass. Gallbladder and biliary ducts: Unremarkable. No calcified stones. No ductal dilation. Pancreas: Unremarkable. No mass. No ductal dilation. Spleen: Normal. No splenomegaly. Adrenal glands: Normal. No mass. Kidneys and ureters: Normal. No mass. Stomach and bowel: Unremarkable. No obstruction. No mucosal thickening. Appendix: No evidence of appendicitis. Urinary bladder: Unremarkable. No mass. Reproductive: Unremarkable as visualized. Intraperitoneal space: Unremarkable. No free air. No significant fluid collection. Lymph nodes: No lymphadenopathy. Bones/joints: No acute fracture. No dislocation. Soft tissues: Unremarkable. CT/CT angio abd aorta runof [id number] IMPRESSION: 1. Severe infrarenal abdominal aortic plaque with significant stenosis 2. Severe bilateral femoropopliteal artery disease as described above
[2024-03-21 14:42] LABS: Blood Urea Nitrogen 15 mg/dL (8-23); Glomerular Filtration Rate 84.2 mL/min (90-130)
[2024-03-21] MEDS: iohexol 350 mg/mL 500 mL Btl (per mL) IV (15:03)
== END 2024-03-21 13:12 | disposition home or self-care (01) ==
PROVIDERS: PCP Nurse Practitioner; Visit Provider Thoracic Surgery (Cardiothoracic Vascular Surgery)
DX: E11.621 Type 2 diabetes mellitus with foot ulcer (principal); L97.509 Non-pressure chronic ulcer of other part of unspecified foot with unspecified severity; I73.9 Peripheral vascular disease, unspecified; I71.40 Abdominal aortic aneurysm, without rupture, unspecified; I70.8 Atherosclerosis of other arteries; I70.0 Atherosclerosis of aorta
CPT/HCPCS: 75635; 82565; 84520; Q9967

== ENCOUNTER → 2024-03-29 12:27 | Outpatient (BNVA) | payer BC, MEDICAID, SELFPAY | PROVIDERS: PCP Nurse Practitioner; Referring Provider Thoracic Surgery (Cardiothoracic Vascular Surgery); Visit Provider Internal Medicine | DX: R07.9 Chest pain, unspecified (principal) | CPT/HCPCS: 93005 ==

== ENCOUNTER 2024-04-03 06:58 | Outpatient (CLI) | payer BC, MEDICAID, SELFPAY ==
[2024-04-03] VITALS (7 sets, daily range): BP systolic 115–152; BP diastolic 49–63; PULSE 65–72; RESP 13–18; TEMP 36.6–36.9; O2SAT 97–99; BMI 28.9
--- NOTE | 2024-04-03 07:30 | XACV_ITS ---
Exam Room: 2 Ht: 165 cm Wt: 79 kg BSA: 1.92 m2 Gender: Female : 1960 Any Known Allergies: Other Exam Priority: Routine Procedure(s): Procedure Description: Peripheral Cath Diagnostic Procedure Procedure Description: Abdominal aortic angiography Procedure Description: Lower extremities' angiography Procedure Description: Peripheral vascular Intervention Procedure Description: PV Balloon Procedure Description: PV Stent Procedure Description: Miscellaneous Procedure Description: ACT Diagnostic Cath Status: Elective Abdominal Diagnostic Findings Distal abdominal aorta: Patent. Lower Extremity Diagnostic Findings Right lower extremity: Right common iliac artery is patent. Right external iliac artery is patent. Right common femoral artery is patent. Right profunda artery is patent with diffuse disease. Right SFA has significant ostial disease. Mid SFA is totally occluded. Distal SFA reconstitutes via profunda artery collaterals. Popliteal artery is totally occluded. Collaterals reconstitute flow in below the knee vessels. Limited visualization of below the vessels. . Right Mid-longitudinal Superficial Femoral Artery:100% stenosis. Right popliteal Artery: 100% stenosis. Left lower extremity findings: Left common iliac artery is patent. Left external iliac artery is patent. Left common femoral artery is patent. Left profunda artery is patent however has diffuse disease. Proximal SFA has severe stenosis. Totally occluded mid to distal SFA. Collateral flow reconstitutes the distal popliteal artery. Below the knee limited visualization of vessels. . Lower Extremity Interventional Findings Right Mid-longitudinal Superficial Femoral Artery: 100% stenosis treated with AB Elliott 35 MILK AND CREAM GRADER Catheter [id number] and AB Elliott 35 MILK AND CREAM GRADER Catheter [id number]. Procedure detail: After diagnostic images were obtained, we switched short sheath to long sheath which went up and over from left common femoral artery access to the right external iliac artery. Patient lost flow after diagnostic images. Possibly embolization after diagnostic image. Using a seeker support catheter and Glidewire totally occluded SFA was crossed and wire was placed in the TP segment. We proceeded with the first dilation with 4.0 x 200 mm balloon. This was followed by a 5.0 x 200 mm balloon angioplasty. There was dissection in distal SFA to proximal popliteal artery. We covered it with 5.0 x 100 mm Supera stent. At this time final angiogram was performed that showed good flow to the distal popliteal artery. Below the knee has diffusely diseased posterior tibial artery and peroneal artery. Anterior tibial artery is occluded.. Right Distal Superficial Femoral Artery: 70% stenosis treated with Supera 5.0 X 100mm. Conclusions Total occlusion of right mid SFA s/p successful revascularization with balloon angioplasty and stent placement in the distal SFA. There is significant right lower extremity disease. Right Mid-longitudinal Superficial Femoral Artery was treated with two Balloon. Right Distal Superficial Femoral Artery was treated with Stent. Recommendations Dual antiplatelet therapy with aspirin and plavix. High intensity statin therapy. Outpatient follow up in 4 weeks. Pressures Phase:Rest AO : 200 / 72 ( 121 ) @ 10:52:00 AM 181 / 87 ( 131 ) @ 11:11:00 AM 173 / 83 ( 126 ) @ 11:12:00 AM 167 / 60 ( 101 ) @ 11:23:00 AM 128 / 52 ( 83 ) @ 11:42:00 AM 109 / 46 ( 72 ) @ 11:56:00 AM Hemodynamic Data Phase:Rest AO : 200.0 / 72.0 ( 121.0 ) @ 10:52:00 AM 181.0 / 87.0 ( 131.0 ) @ 11:11:00 AM 173.0 / 83.0 ( 126.0 ) @ 11:12:00 AM 167.0 / 60.0 ( 101.0 ) @ 11:23:00 AM 128.0 / 52.0 ( 83.0 ) @ 11:42:00 AM 109.0 / 46.0 ( 72.0 ) @ 11:56:00 AM Clinical Evaluation EBL: 5mL-10mL Procedural Details Procedure Consent Obtained. Admit Source: Out Patient. Pre-Procedure Time Out. Identified patient by full name and date of as verbalized by the patient/guarantor. Does the consent match the physician's order: Yes. Accurate & Complete Informed Consent: Yes. Inpatient/Outpatient History & Physical on Chart: Yes. If H&P is completed, is and addenduem needed: No; If yes, is the addendum complete: N/A. Visualize and Verify Site with Patient/Guarantor: N/A. Relevant Radiology Images available: Yes. The risks, benefits, and alternatives of sedation and/or procedure were discussed by physician. The patient agrees to continue. Procedure started. Correct patient, site and procedure confirmed by cath team. Current diagnosis: PVD. PERRLA. Strong, equal hand voip network engineer bilaterally. Lungs clear x 5 lobes. IV Site on Arrival: 20 gauge in the left anticubital. IV Fluids: 0.9% NaCl at 75ml/hr. 0 mL infused prior to greenhouse laborer. Pre Procedural Pulses: bilateral dorsalis pedis was Doppled. Pre Procedural Pulses: bilateral posterior tibial was Doppled. Pre Procedural Pulses: bilateral radial was 3+. Oxygen started at 2liters/min via nasal canula. bilateral groins was prepped with chloroprep then draped in the usual sterile fashion. Physician notified. Baseline sample Acquired. HR: 62 BPM. Physician arrived. Physician scrubbed in. Time out performed with cath team. Lidocaine 1% infiltrated to the left groin. Ultrasound obtained to assist with arterial access. Arterial access obtained with micropuncture set. A 5Fr UF catheter in over wire. Abdominal aortogram performed in AP @ 10 mL/sec for a total of 30 mL. Glidwire in through UF catheter. UF catheter out over glidewire. A 5Fr RIM catheter in over wire. Glidewire and Rim catheter advanced to right external iliac. Glidewire out. Right external iliac selected and arteriogram performed. Right external iliac selected and arteriogram performed. Right external iliac selected and arteriogram with runoff performed @ 10 mL/sec for a total of 20 mL. Rim catheter out over the standard wire. Uf catheter in over the standard wire. Abdominal aortogram performed in AP @ 10 mL/sec for a total of 20 mL. Glidewire in through UF catheter. Glidewire advanced to right common femoral. Anesthesia called to greenhouse laborer for further sedation management of patient. UF catheter out over glidewire. 5Fr seeker catheter in over glidewire. Anesthesia arrived to provide sedation for patient, see anesthesia flowsheet. Glidewire advanced to proximal SFA. Seeker catheter out. 6fr short sheath exchanged for 6fr 45cm flexor sheath over the glidewire. Seeker in over glidewire. Glidewire and seeker advanced to popliteal artery. Seeker advanced to peroneal artery. Glidewire out. Glidewire in through seeker catheter. Wire parked in peroneal artery. Seeker out. Balloon inserted over the wire to the distal superficial femoral. Inflation number : 1 A AB Elliott 35 MILK AND CREAM GRADER Catheter [id number] was prepped and advanced across the Superficial Femoral, Right , then inflated to 8 LULU for 0:59 seconds. Balloon advanced to proximal SFA. Inflation number: 2 The AB Elliott 35 MILK AND CREAM GRADER Catheter [id number] was reinflated across the Superficial Femoral, Right, to 8 LULU for 1:01 seconds. Balloon out over wire. Right external iliac selected and arteriogram with runoff performed. ACT drawn. Results 254 seconds. Therapeutic limits - pre-heparin administration 90-150 seconds and monitoring heparin during a vascular procedure >250 seconds. Balloon inserted over the wire to the right distal superficial femoral. Inflation number : 3 A AB Elliott 35 MILK AND CREAM GRADER Catheter [id number] was prepped and advanced across the Superficial Femoral, Right , then inflated to 8 LULU for 1:55 seconds. Balloon repositioned to proximal SFA. Inflation number: 4 The AB Elliott 35 MILK AND CREAM GRADER Catheter [id number] was reinflated across the Superficial Femoral, Right, to 8 LULU for 2:00 seconds. Balloon out over wire. Right external iliac selected and arteriogram with runoff performed @ 10 mL/sec for a total of 30 mL. Seeker in over glidewire. Glidewire out. 300cm 0.14 Command wire in through seeker catheter, seated in popliteal artery. Seeker out over wire. Supera peripheral stent advanced over wire to lesion in distal SFA. Inflation Number : 1 A Supera 5.0 X 100mm -Lot Number# [id number] 08-29-24 was prepped and advanced across the Distal Superficial Femoral, Right. Stent was self deployed. Command wire out. 6fr 45cm flexor sheath exchanged for new 6fr 11cm short sheath over standard wire. Wire out. Sheath injected in Left common femoral artery and runoff performed. ACT drawn. Results 297 seconds. Therapeutic limits - pre-heparin administration 90-150 seconds and monitoring heparin during a vascular procedure >250 seconds. A Mynx was successful obtaining hemostatsis at the Left Femoral artery insertion site. LOT # [id number] 03-07-2026. Post Procedure: Pulses reassessed and unchanged. PERRLA. Strong, equal hand voip network engineer bilaterally. No VTE prophylaxis required. Medication's Wasted: Heparin = 3000 units. Medication's Wasted: Other = Hydralizine 10 mg. Total IV fluids: 400 mL. Post-op diagnosis: Totally occluded right SFA, status post balloon angioplasty and placement of 1 stent. Complications: None. Estimated blood loss: 5mL-10mL. Responsiveness - Normal response to verbal stimuli; alert and oriented, PERRLA. Airway - Unaffected, no intervention required; spontaneous ventilation. Circulation: W/N/L, pulses unchanged. Nausea/Vomiting: No. Procedure completed. Patient transferred by bed to CPRU. Vital chart was stopped. Access Site Site: Left Femoral artery Sheath Size: 6 Fr Hemostasis Method: Mynx Hemostasis Success: Successful Procedure Medications Start: 9:23 AM Stop: 9:23 AM Medication: Versed Amount: 1 mg Route: I.V. Start: 9:23 AM Stop: 9:23 AM Medication: Fentanyl Amount: 25 mcg Route: I.V. Start: 9:36 AM Stop: 9:36 AM Medication: Versed Amount: 1 mg Route: I.V. Start: 9:36 AM Stop: 9:36 AM Medication: Fentanyl Amount: 25 mcg Route: I.V. Start: 9:54 AM Stop: 9:54 AM Medication: Hydralazine Amount: 10 mg Route: I.V. Start: 9:54 AM Stop: 9:54 AM Medication: Fentanyl Amount: 25 mcg Route: I.V. Start: 9:54 AM Stop: 9:54 AM Medication: Versed Amount: 1 mg Route: I.V. Start: 10:07 AM Stop: 10:07 AM Medication: Heparin Amount: 6000 units Route: I.V. Start: 10:10 AM Stop: 10:10 AM Medication: Versed Amount: 1 mg Route: I.V. Start: 10:10 AM Stop: 10:10 AM Medication: Fentanyl Amount: 25 mcg Route: I.V. Start: 10:39 AM Stop: 10:39 AM Medication: Heparin Amount: 1000 units Route: I.V. Start: 10:46 AM Stop: 10:46 AM Medication: Heparin Amount: 1000 units Route: I.V. Start: 11:30 AM Stop: 11:30 AM Medication: Plavix Amount: 600 mg Route: P.O. I, the attending physician, have reviewed and verified all procedure medications. Yes, all medications given per verbal order History/Risk Factors Hypertension: No Dyslipidemia: No Peripheral Arterial Disease (PAD): Yes Myocardial Infarction (OR): No Obesity: No Renal Disease: No Tobacco Use: Current/Recent(w/in 1 year) Prior Interventions PCI: No CABG: No Valve Surgery: No Report Signatures Finalized by Hakan Keane MD on 04/17/2024 05:54 PM
[2024-04-03] MEDS: diphenhydrAMINE 50 mg Capsule PO (07:36)
[2024-04-03 07:46] LABS: Basophils # 0.1 10^3/uL (0.0-0.1); Basophils % 0.8 %; Eosinophils # 0.4 10^3/uL (0.0-0.8); Eosinophils % 4.4 %; Hematocrit 47.8 % (36-47); Lymphocytes # 2.2 10^3/uL (0.8-4.8); Lymphocytes % 24.4 %; Mean Corpuscular HGB Conc 33.7 g/dL (30-55); Mean Corpuscular Hemoglobin 30.5 pg (27-33); Mean Corpuscular Volume 90.5 fl (85-98); Mean Platelet Volume 9.2 fL (7.4-10.4); Monocytes # 0.7 10^3/uL (0.2-0.9); Monocytes % 7.6 %; Neutrophils # 5.54 10^3/uL (1.8-7.7); Neutrophils % 62.6 %; Nucleated Red Blood Cells % 0 %; Platelet Count 200 10^3/cmm (157-399); Red Blood Count 5.28 10^6/uL (3.85-5.65); Red Cell Distribution Width 12.6 % (12.1-15.1); White Blood Count 8.85 10^3/uL (3.29-11.43)
[2024-04-03 08:01] LABS: Anion Gap 17.3 (5-19); Blood Urea Nitrogen 14 mg/dL (8-23); Calcium 9.3 mg/dL (8.5-10.5); Carbon Dioxide 24 mmol/L (22-29); Chloride 102 mmol/L (98-107); Creatinine Clr Calc Pharmacy 84.3004; Glomerular Filtration Rate 84.2 mL/min (90-130); Glucose 105 mg/dL (65-115); Osmolality Calculated 289 mOsm/kg (285-295); Potassium 4.3 mmol/L (3.5-5.1); Sodium 139 mmol/L (136-145)
--- NOTE | 2024-04-03 09:40 | P.HPUD_ITS ---
Surgery/Procedure H&P Update DATE OF PROCEDURE: April 03, 2024 DATE H&P PERFORMED: 03/29/24 H&P UPDATE INFORMATION: I have reviewed H&P completed within last 30 days, I have examined patient prior to procedure and No changes to prior documentation PREOP DIAGNOSIS: Critical limb ischemia of right lower extremity PRIMARY INDICATION FOR PROCEDURE: Critical limb ischemia of right lower extremity PLANNED PROCEDURE: Operation Date: 04/03/24 08:30 Proposed Procedures p Peripheral Diagnostic - perip angio bilat(Not Applicable) - Hakan Keane M.D Percutaneous peripheral intervention of right lower extremity PATIENT REASSESSED PRIOR TO SEDATION, WITH NO CHANGE NOTED: Yes PHYSICAL EXAM: alert, oriented x 3, clear to auscultation bilaterally and regular rate & rhythm OTHER PERTINENT EXAM FINDINGS: Pulses not palpable bilaterally. AIRWAY EVAL/ANESTHESIA PLAN: normal airway, ASA III, Local Anesthesia, Risks, benefits & alternatives of sedation and/or procedure discussed and Patient agre es to continue as planned ADDITIONAL INFORMATION: Moderate sedation
--- NOTE | 2024-04-03 12:28 | P.ANESASSM_ITS ---
Pre-Anesthetic Assessment Height/Weight: Height 1.65 m Weight 78.925 kg Temp Pulse Resp BP Pulse Ox O2 Del Method 98.5 F 71 18 149/63 98 Room Air 04/03/24 07:39 04/03/24 12:10 04/03/24 12:10 04/03/24 12:10 04/03/24 12:10 04/03/24 12:10 Operation Date: 04/03/24 08:30 Proposed Procedures p Peripheral Diagnostic - perip angio bilat(Not Applicable) - Hakan Keane M.D Familial anesthetic complications: none Was Beta Sherly taken within 24 hours: N/A Was Clonidine taken within 24 hours: N/A Social Tobacco and No alcohol Exam alert, oriented x 3 and regular rate & rhythm rhonchi Airway Submandibular: within normal limits Cervical ROM: within normal limits Mallampati: Class II Dentition: false Pulmonary Chronic Obstructive Pulmonary Disease CV/HEM Peripheral Vascular Disease Metabolic Diabetes Mellitus and Hyperlipidemia Neuropsych Neuropathy Anesthetic Plan ASA status: 3 Anesthesia: MAC Other: Case in progress, called to help sedate for patient safety. Medications/Allergies Home Medications Medication Instructions Recorded Confirmed Last Taken Type glipizide 10 mg tablet 10 mg PO BID #180 tabs 12/02/23 03/31/24 04/02/24 05:00 Rx Farxiga 10 mg tablet 10 mg PO DAILY #90 tabs 02/25/24 03/31/24 04/02/24 05:00 Rx (dapagliflozin propanediol) mupirocin 2 % topical ointment 1 applic topical BID #22 grams 03/05/24 03/31/24 04/02/24 19:00 Rx hydrocodone 5 mg-acetaminophen 325 1 tab PO BID PRN pain 10 days #20 03/15/24 03/31/24 Unknown Rx mg tablet tabs pentoxifylline 400 mg 400 mg PO TID #90 tabs 03/15/24 03/31/24 04/02/24 19:00 Rx tablet,extended release simvastatin 10 mg tablet 10 mg PO DAILY #30 tabs 03/15/24 03/31/24 04/02/24 05:00 Rx aspirin 81 mg tablet,delayed 81 mg PO DAILY 03/29/24 04/03/24 04/03/24 06:00 History release Allergies Allergy/AdvReac Type Severity Reaction Status Date / Time cephalexin Allergy Unknown Verified 03/29/24 12:41 codeine Allergy Unknown Verified 03/29/24 12:41 gabapentin Allergy Unknown Verified 03/29/24 12:41 metformin Allergy Unknown Verified 03/29/24 12:41 morphine Allergy Unknown Verified 03/29/24 12:41 pregabalin [From Lyrica] Allergy Unknown Verified 03/29/24 12:41 Sulfa (Sulfonamide Allergy Unknown Verified 03/29/24 12:41 Antibiotics) Current Medications Generic Name Dose Route Start Last Admin Trade Name Freq PRN Reason Stop Dose Admin Sodium Chloride 1,000 mls @ 50 mls/hr 04/03/24 07:30 04/03/24 07:36 Sodium Chloride 0.9% IV 04/04/24 03:29 Not Given .Q20H ONE PFSH Anesthesia Medical History PVD (peripheral vascular disease) Neuropathy Diabetes No pertinent family history Family History Grandmother Cancer breast-- Family/Other Cancer nieces x 2- breast aunt- breast Mother Chronic kidney disease (CKD) Grandfather Chronic kidney disease (CKD) maternal Father Alzheimer's dementia Sister Alzheimer's dementia Denies family history of Diabetes Clotting disorder Heart disease Bleeding disorder Thyroid disease Stroke Social History Smoking and tobacco/nicotine status: current every day tobacco/nicotine user Female Reproductive History Para: 4 Spontaneous abortions: No Data Anesthesia 04/03/24 07:30 04/03/24 07:30 Short CBC 04/03/24 Range/Units 07:30 WBC 8.85 (3.29-11.43) 10^3/uL Hgb 16.10 (11.27-16.99) g/dL Hct 47.8 H (36-47) % MCV 90.5 (85-98) fl Plt Count 200 (157-399) 10^3/cmm Neut % (Auto) 62.6 % Neut # (Auto) 5.54 (1.8-7.7) 10^3/uL BMP 04/03/24 07:30 Sodium 139 Potassium 4.3 Chloride 102 Carbon Dioxide 24 BUN 14 Creatinine 0.7 Glucose 105 Calcium 9.3 Cardiac Studies: 2 No Data to Display
--- NOTE | 2024-04-03 12:30 | ANE.PACU2 ---
Inpatient post-anesthesia follow up: Airway intact: Yes Vital signs: Temperature 98.5 F Pulse Rate 71 Respiratory Rate 18 Blood Pressure [Ri ght Arm] 149/63 Blood Pressure 152/51 Pulse Oximetry 98 Oxygen Delivery Me thod Room Air Oxygen Flow Rate Fraction of Inspir ed Oxygen Hydration adequate: Yes Nausea and vomiting: No Pain level: 2 Mental status: Baseline
--- NOTE | 2024-04-03 15:02 | PC.NURSE ---
Patient arrived to [facility] by bed at 12:23pm. Patient had minx closure device with orders for bedrest [id number]. Left femoral site is clean, dry and intact. Patient educated regarding activity restrictions and remains non-compliant. Patient stated that she could not use the bed becker therefore would be getting up to use the restroom and did so anyway. Patient educated on risks of this and verbalized understanding. Physician notified
--- NOTE | 2024-04-03 19:11 | PC.NURSE ---
Patient verbalized that she will be leaving AMA> Physician notified and instructed to inform patient that she is at risk for bleeding, sudden , critical limb ischemia, and loss of limb. Patient accepts ALL risks. Patient stated reason for leaving against medical advice verbatim Im done with this shit, I'm going home. Physician instructed this nurse to give patient ONE dose of Plavix 75mg to take tomorrow morning and phone in a script of Plavix 75mg daily qty 90 refills 2 to the pharmacy. Nurse left voicemail on [facility] for this script. Patient has been educated and continues to refuse to stay.
--- NOTE | 2024-04-03 19:22 | PC.NURSE ---
Post angiogram homecare instructions have been provided to patient.
--- NOTE | 2024-04-04 07:55 | P.DS_ITS ---
Discharge Providers Date of Admission: April 03, 2024 Date of Discharge: April 03, 2024 (Patient left AGAINST MEDICAL ADVICE). This documentation is for 04/03/2024. Attending Provider at Admission: Hakan Keane MD Attending Provider at Discharge: Hakan Keane M.D Primary Care Provider: Sayra Ann APN Reason for Visit Reason for Visit: I73.9 Brief History: 63-year-old woman with severe peripheral artery disease with nonhealing wound right foot and critical limb ischemia came as an outpatient today for peripheral angiogram with intervention. Hospital Course Hospital Course Patient was found to have total occlusion of SFA with minimal flow below the knee. Had a successful revascularization of right lower extremity with balloon angioplasty and 1 stent placement in the SFA. Postprocedure she was noncompliant with instructions and despite of sheath removal with closure device placement she started walking against instructions. Plan was to observe her overnight for bleeding complications. However I received a call in the evening that she is ready to go home and left AGAINST MEDICAL ADVICE. Nurse discussed in detail risk of bleeding, , limb loss. She showed understanding and left. We gave patient one time dose of plavix for tomorrow morning. She is already on aspirin. Plavix was also called into her pharmacy with instructions given regarding compliance and risk of stent/vessel closure without antiplatelet therapy. I tried calling her family () however his phone was going to voice mail and could not be contacted. No other contacts on the chart. 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 Routine Exams 04/03/24 07:30 Taken Laboratory Results WBC 8.85 10^3/uL (3.29-11.43) 04/03/24 07:30 RBC 5.28 10^6/uL (3.85-5.65) 04/03/24 07:30 Hgb 16.10 g/dL (11.27-16.99) 04/03/24 07:30 Hct 47.8 % (36-47) H 04/03/24 07:30 MCV 90.5 fl (85-98) 04/03/24 07:30 MCH 30.5 pg (27-33) 04/03/24 07:30 MCHC 33.7 g/dL (30-55) 04/03/24 07:30 RDW 12.6 % (12.1-15.1) 04/03/24 07:30 Plt Count 200 10^3/cmm (157-399) 04/03/24 07:30 MPV 9.2 fL (7.4-10.4) 04/03/24 07:30 Neut % (Auto) 62.6 % 04/03/24 07:30 Lymph % (Auto) 24.4 % 04/03/24 07:30 Boundary % (Auto) 7.6 % 04/03/24 07:30 Eos % (Auto) 4.4 % 04/03/24 07:30 Baso % (Auto) 0.8 % 04/03/24 07:30 Neut # (Auto) 5.54 10^3/uL (1.8-7.7) 04/03/24 07:30 Lymph # (Auto) 2.2 10^3/uL (0.8-4.8) 04/03/24 07:30 Boundary # (Auto) 0.7 10^3/uL (0.2-0.9) 04/03/24 07:30 Eos # (Auto) 0.4 10^3/uL (0.0-0.8) 04/03/24 07:30 Baso # (Auto) 0.1 10^3/uL (0.0-0.1) 04/03/24 07:30 Nucleated RBC % (auto) 0 % 04/03/24 07:30 Nucleated RBCs # 0.0 /100WBC 04/03/24 07:30 Sodium 139 mmol/L (136-145) 04/03/24 07:30 Potassium 4.3 mmol/L (3.5-5.1) 04/03/24 07:30 Chloride 102 mmol/L (98-107) 04/03/24 07:30 Carbon Dioxide 24 mmol/L (22-29) 04/03/24 07:30 Anion Gap 17.3 (5-19) 04/03/24 07:30 BUN 14 mg/dL (8-23) 04/03/24 07:30 Creatinine 0.7 mg/dL (0.5-0.9) 04/03/24 07:30 GFR Calculation 84.2 mL/min (90-130) L 04/03/24 07:30 Glucose 105 mg/dL (65-115) 04/03/24 07:30 Calculated Osmolality 289 mOsm/kg (285-295) 04/03/24 07:30 Calcium 9.3 mg/dL (8.5-10.5) 04/03/24 07:30 Vitals Last Vital Signs Temp 98.3 F 04/03/24 16:20 Pulse 72 04/03/24 18:38 Resp 13 04/03/24 18:38 BP 116/55 04/03/24 18:38 Pulse Ox 97 04/03/24 16:20 O2 Del Method Nasal Cannula 04/03/24 12:51 Discharge Plan Discharge Patient Disposition: Left Against Medical Advice Prescriptions: No Action aspirin 81 mg tablet,delayed release (DR/EC) 81 mg PO DAILY mupirocin 2 % ointment 1 applic topical BID Qty: 22 0RF pentoxifylline 400 mg tablet extended release 400 mg PO TID Qty: 90 3RF Rx Instructions: must administer with a meal/food hydrocodone-acetaminophen 5-325 mg tablet 1 tab PO BID PRN (Reason: pain) 10 Days Qty: 20 0RF glipizide 10 mg tablet 10 mg PO BID Qty: 180 2RF dapagliflozin propanediol [Farxiga] 10 mg tablet 10 mg PO DAILY Qty: 90 2RF simvastatin 10 mg tablet 10 mg PO DAILY Qty: 30 3RF Referrals: Isidra Gauthier FNP [Nurse Practitioner] - 04/14/24 11:00 am Patient Instructions: Post Angiogram Home Care Instructions Discharge Date/Time: 04/03/24 19:30 Discharge Attestations Time Spent in Discharge Care*: other Quality Metrics Clinical Quality Measures [ No reported AMI, CVA or VTE this stay] Coding Level of Care Code Acute Code for Chg Nohemi
== END 2024-04-03 19:30 | disposition left against medical advice (07) ==
LOC: CCL 06:59 → CSU 11:48
PROVIDERS: PCP Nurse Practitioner; Visit Provider Internal Medicine
DX: I74.3 Embolism and thrombosis of arteries of the lower extremities (principal); I73.9 Peripheral vascular disease, unspecified; Z53.29 Procedure and treatment not carried out because of patient's decision for other reasons; Z91.199 Patient's noncompliance with other medical treatment and regimen due to unspecified reason; J44.9 Chronic obstructive pulmonary disease, unspecified; E11.40 Type 2 diabetes mellitus with diabetic neuropathy, unspecified; E78.5 Hyperlipidemia, unspecified; Z79.82 Long term (current) use of aspirin; F17.200 Nicotine dependence, unspecified, uncomplicated
CPT/HCPCS: 36415; 37226; 75625; 75716; 80048; 85025; 85347; 96374; 96375; 99152; 99153; C1725; C1760; C1769; C1876; C1887; C1894; G0269; J0360; J1644; J2250; J2704; J3010; J7030; Q0163; Q9967

== ENCOUNTER → 2024-04-14 11:28 | Outpatient (BNVA) | payer BC, MEDICAID, SELFPAY | PROVIDERS: PCP Nurse Practitioner; Visit Provider Nurse Practitioner Family | DX: I73.9 Peripheral vascular disease, unspecified (principal) | CPT/HCPCS: 36415; 80048 ==

== ENCOUNTER 2024-05-02 08:41 | Outpatient (CLI) | payer BC, MEDICAID, SELFPAY ==
--- NOTE | 2024-04-20 10:20 | PC.NURSE ---
Called patient to update her about procedure on May 03 to May 02 @ 1000. Patient verbalized understanding.
[2024-05-02] VITALS (47 sets, daily range): BP systolic 95–190; BP diastolic 49–104; PULSE 67–81; RESP 0–24; TEMP 36.5–36.6; O2SAT 95–98; BMI 28.9; BMI 29.0
[2024-05-02] MEDS: diphenhydrAMINE 50 mg Capsule PO (08:55)
--- NOTE | 2024-05-02 09:00 | XACV_ITS ---
Ht: 165 cm Wt: 79 kg BSA: 1.92 m2 Any Known Allergies: Other Gender: Female : 1960 Exam Type: Invasive Peripheral Vascular Procedure(s): Procedure Description: Diagnostic procedure Procedure Description: Peripheral Cath Diagnostic Procedure Procedure Description: Lower extremities' angiography Procedure Description: Peripheral vascular Intervention Procedure Description: PV Balloon Procedure Description: Miscellaneous Procedure Description: ACT Exam Priority: Routine Lower Extremity Diagnostic Findings INDICATION: Critical limb ischemia/ non healing wound of left third toe/ resting foot pain. Left lower extremity findings:Left common iliac artery is patent. Left external iliac artery is patent. Left common femoral artery is patent. Left profunda artery is patent. Left SFA is totally occluded in the proximal segment. There is reconstitution of distal popliteal artery below the knee via collaterals. Two-vessel runoff seen to the foot with patent peroneal and posterior tibial arteries.. Right lower extremity findings: Hand-injection performed from right common femoral artery access sheath for closure device feasibility. It showed patent external iliac artery. Patent common femoral artery seen. Patent SFA and popliteal arteries are seen. Patent prior stent in SFA.. Left Mid-longitudinal Superficial Femoral Artery: 70% stenosis. Lower Extremity Interventional Findings Procedure detail: After diagnostic images were obtained, we crossed totally occluded left SFA with Glidewire and seeker support catheter. This was placed in distal peroneal artery. We then performed balloon angioplasty of popliteal artery and SFA with 4.0 x 200 mm balloon. At this time final angigoram was performed that showed excellent flow in the SFA. We exchanged long sheath to a short 6 fr sheath and proceeded with mynx closure device. Patient left the cardiac cath lab manager in a stable condition. . Left Mid-longitudinal Superficial Femoral Artery: 100% stenosis treated with AB Penrose 35 REGIONAL AGRONOMIST Catheter [id number]. Conclusions Totally occluded SFA/proximal to mid popliteal artery. Status post successful revascularization with balloon angioplasty.. Left Mid-longitudinal Superficial Femoral Artery/ popliteal artery was treated with Balloon. Recommendations Continue aspirin and plavix. Statin therapy. Continue following with wound care clinic. Outpatient cardiology follow up in 1-2 weeks. Hemodynamic Data Phase:Rest AO : 140.0 / 64.0 ( 98.0 ) @ 11:14:00 AM Access Site Site: Right Femoral artery Sheath Size: 6 Fr Hemost... Method: Mynx Hemost... Success: Successful Procedure Details Findings Pre-Procedure Time Out. Identified patient by full name and date of as verbalized by the patient/guarantor. Does the consent match the physician's order: Yes. Accurate & Complete Informed Consent: Yes. Inpatient/Outpatient History & Physical on Chart: Yes. If H&P is completed, is and addenduem needed: No; If yes, is the addendum complete: N/A. Visualize and Verify Site with Patient/Guarantor: N/A. Relevant Radiology Images available: Yes. Pre-op teaching completed and patient verbalized understanding. The risks, benefits, and alternatives of sedation and/or procedure were discussed by physician. The patient agrees to continue. Procedure started. Baseline sample Acquired. HR: 0 BPM. Anesthesia here to manage sedation and airway. Correct patient, site and procedure confirmed by cath team. PERRLA. Strong, equal hand casino operations supervisor bilaterally. Lungs clear x 5 lobes. IV Site on Arrival: 20 gauge in the left anticubital. IV Fluids: 0.9% NaCl at KVO. 0 mL infused prior to cardiac cath lab manager. Pre Procedural Pulses: bilateral dorsalis pedis was Doppled. Pre Procedural Pulses: bilateral posterior tibial was Doppled. Pre Procedural Pulses: bilateral radial was 3+. Oxygen started at 2liters/min via nasal canula. bilateral groins was prepped with chloroprep then draped in the usual sterile fashion. Baseline sample Acquired. HR: 94 BPM. Physician scrubbed in. Immediate Pre-Procedure Time Out. Correct Patient: Yes; Correct Procedure: Yes; Correct Site: Yes; Correct Patient Position: Yes; Correct Supplies: Yes; Dried Flammable Prep: Yes; Blood Products Available: N/A;. Lidocaine 1% infiltrated to the right groin. Arterial access obtained with micropuncture set. A 5Fr UF catheter in over glidewire. Glidewire out. Left common iliac selected and arteriogram performed. Glidewire inserted. Catheter out OTW. The short 6Fr sheath exchanged for a 6Fr 45cm Flexor sheath. The seeker catheter inserted OTW. Wire out. Glidewire inserted. Seeker out OTW. Inflation number : 1 A AB Penrose 35 REGIONAL AGRONOMIST Catheter [id number] was prepped and advanced across the Superficial Femoral, Left , then inflated to 8 LULU for 1:31 seconds. The sheath hooked up to heparnized saline at KVO to maintain patency. Inflation number: 2 The AB Penrose 35 REGIONAL AGRONOMIST Catheter [id number] was reinflated across the Superficial Femoral, Left, to 8 LULU for 1:30 seconds. Inflation number: 3 The AB Penrose 35 REGIONAL AGRONOMIST Catheter [id number] was reinflated across the Superficial Femoral, Left, to 8 LULU for 1:32 seconds. Balloon out over wire. Results checked. The long Flexor sheath exchanged for a short 6Fr sheath. ACT drawn. Results 237 seconds. Therapeutic limits - pre-heparin administration 90-150 seconds and monitoring heparin during a vascular procedure >250 seconds. A Right femoral angiogram was performed to determine safe placement of closure device. A Mynx was successful obtaining hemostatsis at the Right Femoral artery insertion site. Post Procedure: Pulses reassessed and unchanged. PERRLA. Strong, equal hand casino operations supervisor bilaterally. No VTE prophylaxis required. Medication's Wasted: Lidocaine 1% = 10 mL. Complications: None. Estimated blood loss: 5mL-10mL. Responsiveness - Normal response to verbal stimuli; alert and oriented, PERRLA. Airway - Unaffected, no intervention required; spontaneous ventilation. Circulation: W/N/L, pulses unchanged. Nausea/Vomiting: No. Procedure completed. Vital chart was stopped. Patient transferred by stretcher to CPRU. Procedure Medications Start: 10:29 AM Stop: 10:29 AM Medication: Heparin Amount: 6000 units Route: I.V. Start: 10:29 AM Stop: 10:29 AM Medication: Hydralazine Amount: 10 mg Route: I.V. Start: 10:38 AM Stop: 10:38 AM Medication: Hydralazine Amount: 10 mg Route: I.V. Start: 10:47 AM Stop: 10:47 AM Medication: Plavix Amount: 300 mg Route: P.O. Start: 10:52 AM Stop: 10:52 AM Medication: Heparin Amount: 1000 units Route: I.V. I, the attending physician, have reviewed and verified all procedure medications. Yes, all medications given per verbal order History/Risk Factors Hypertension: No Dyslipidemia: No Peripheral Arterial Disease (PAD): Yes Obesity: No Renal Disease: No Tobacco Use: Current/Recent(w/in 1 year) Prior Interventions PCI: No CABG: No Valve Surgery: No Report Signatures Finalized by Hakan Keane MD on 05/03/2024 11:32 AM
[2024-05-02 09:10] LABS: Basophils # 0.1 10^3/uL (0.0-0.1); Basophils % 0.5 %; Eosinophils # 0.6 10^3/uL (0.0-0.8); Eosinophils % 6.3 %; Hematocrit 42.8 % (36-47); Lymphocytes % 20.2 %; Mean Corpuscular HGB Conc 33.2 g/dL (30-55); Mean Corpuscular Hemoglobin 29.6 pg (27-33); Mean Corpuscular Volume 89.4 fl (85-98); Mean Platelet Volume 8.6 fL (7.4-10.4); Monocytes # 0.7 10^3/uL (0.2-0.9); Neutrophils # 6.41 10^3/uL (1.8-7.7); Neutrophils % 65.7 %; Nucleated Red Blood Cells % 0 %; Platelet Count 274 10^3/cmm (157-399); Red Blood Count 4.79 10^6/uL (3.85-5.65); Red Cell Distribution Width 13.2 % (12.1-15.1); White Blood Count 9.75 10^3/uL (3.29-11.43)
--- NOTE | 2024-05-02 09:22 | P.ANESASSM_ITS ---
Pre-Anesthetic Assessment Height/Weight: Height 1.65 m Operation Date: 05/02/24 10:00 Proposed Procedures p Peripheral Diagnostic - Periph Angio Unil(Not Applicable) - Hakan Keane M.D Familial anesthetic complications: none Was Beta Sherly taken within 24 hours: N/A Was Clonidine taken within 24 hours: N/A Last intake: > 8 hrs Social Tobacco and No alcohol Exam alert, oriented x 3, clear to auscultation bilaterally and regular rate & rhythm Airway Mallampati: Class II Dentition: other (multiple missing and broken) CV/HEM Peripheral Vascular Disease Metabolic Diabetes Mellitus and Hyperlipidemia Anesthetic Plan ASA status: 4 Anesthesia: MAC Risk of > 500 ml blood loss (7ml/kg in children): No Medications/Allergies Home Medications Medication Instructions Recorded Confirmed Last Taken Type glipizide 10 mg tablet 10 mg PO BID #180 tabs 12/02/23 04/29/24 05/01/24 Rx Farxiga 10 mg tablet 10 mg PO DAILY #90 tabs 02/25/24 04/29/24 05/01/24 Rx (dapagliflozin propanediol) mupirocin 2 % topical ointment 1 applic topical BID #22 grams 03/05/24 04/29/24 04/02/24 19:00 Rx pentoxifylline 400 mg 400 mg PO TID #90 tabs 03/15/24 04/29/24 04/02/24 19:00 Rx tablet,extended release simvastatin 10 mg tablet 10 mg PO DAILY #30 tabs 03/15/24 05/02/24 05/01/24 21:00 Rx aspirin 81 mg tablet,delayed 81 mg PO DAILY 03/29/24 04/29/24 05/02/24 07:30 History release ondansetron 4 mg disintegrating 4 mg PO Q8H PRN nausea and 04/04/24 04/29/24 Unknown Rx tablet vomiting #30 tabs nicotine 21 mg/24 hr daily 1 patch transdermal DAILY #28 ea 04/24/24 04/29/24 Unknown Rx transdermal patch doxycycline hyclate 100 mg tablet 100 mg PO BID 10 days #20 tabs 04/29/24 05/02/24 Unknown Rx hydrocodone 5 mg-acetaminophen 325 1 tab PO Q6H PRN pain 5 days #30 04/29/24 05/02/24 Unknown Rx mg tablet tabs Allergies Allergy/AdvReac Type Severity Reaction Status Date / Time cephalexin Allergy Unknown Verified 04/29/24 12:03 codeine Allergy Unknown Verified 04/29/24 12:03 gabapentin Allergy Unknown Verified 04/29/24 12:03 metformin Allergy Unknown Verified 04/29/24 12:03 morphine Allergy Unknown Verified 04/29/24 12:03 pregabalin [From Lyrica] Allergy Unknown Verified 04/29/24 12:03 Sulfa (Sulfonamide Allergy Unknown Verified 04/29/24 12:03 Antibiotics) Current Medications Generic Name Dose Route Start Last Admin Trade Name Freq PRN Reason Stop Dose Admin Sodium Chloride 1,000 mls @ 50 mls/hr 05/02/24 09:00 05/02/24 08:50 Sodium Chloride 0.9% IV 05/03/24 04:59 Not Given .Q20H ONE PFSH Anesthesia Medical History Cellulitis Left foot pain PVD (peripheral vascular disease) Neuropathy Diabetes No pertinent family history Family History Grandmother Cancer breast-- Family/Other Cancer nieces x 2- breast aunt- breast Mother Chronic kidney disease (CKD) Grandfather Chronic kidney disease (CKD) maternal Father Alzheimer's dementia Sister Alzheimer's dementia Denies family history of Diabetes Clotting disorder Heart disease Bleeding disorder Thyroid disease Stroke Social History Smoking and tobacco/nicotine status: current every day tobacco/nicotine user Female Reproductive History Para: 4 Spontaneous abortions: No Data Anesthesia 05/02/24 08:58 05/02/24 08:58 Short CBC 05/02/24 Range/Units 08:58 WBC 9.75 (3.29-11.43) 10^3/uL Hgb 14.20 (11.27-16.99) g/dL Hct 42.8 (36-47) % MCV 89.4 (85-98) fl Plt Count 274 (157-399) 10^3/cmm Neut % (Auto) 65.7 % Neut # (Auto) 6.41 (1.8-7.7) 10^3/uL Cardiac Studies: 2 No Data to Display
[2024-05-02 09:23] LABS: Blood Urea Nitrogen 21 mg/dL (8-23); Calcium 9.3 mg/dL (8.5-10.5); Carbon Dioxide 23 mmol/L (22-29); Chloride 103 mmol/L (98-107); Creatinine Clr Calc Pharmacy 118.0206; Glomerular Filtration Rate 124.2 mL/min (90-130); Glucose 117 mg/dL (65-115); Osmolality Calculated 294 mOsm/kg (285-295); Sodium 140 mmol/L (136-145)
--- NOTE | 2024-05-02 09:46 | W.PM.OPSUD ---
Surgery/Procedure H&P Update DATE OF PROCEDURE: May 02, 2024 DATE H&P PERFORMED: 04/14/24 H&P UPDATE INFORMATION: I have reviewed H&P completed within last 30 days, I have examined patient prior to procedure and Changes to prior documentation as noted here CHANGES TO PREVIOUS DOCUMENTATION: Patient's right lower extremity is responding well to revascularization. However she has right gangrene of left third toe with resting foot pain and extension of gangrene. On last visit patient left AMA post procedure. We discussed this time she has agreed to stay. Risks and benefits of the procedure have been discussed in detail. These include potential worsening of blood flow and turning to acute limb. Patient understands these and wants to proceed. PREOP DIAGNOSIS: Critical limb ischemia/ Resting foot pain/ Non healing wound. PRIMARY INDICATION FOR PROCEDURE: Critical limb ischemia/ Resting foot pain/ Non healing wound. PLANNED PROCEDURE: Operation Date: 05/02/24 10:00 Proposed Procedures p Peripheral Diagnostic - Periph Angio Unil(Not Applicable) - Hakan Keane M.D Peripheral intervention Anesthesia team available for sedation
--- NOTE | 2024-05-02 11:00 | SUR.EXTENDED ---
Received the patient back from the labor arbitrator via bed s/p peripheral intervention of the left SFA. Patient drowsy from sedation but awakens easily to voice. A & 0 x 3. windows administrator placed and vital signs obtained. S/P Mynx closure to the right femoral access site. Groin soft with no bleeding or hematoma noted. Doppled PT and DP pulses on the left. No other assessment changes noted from pre cath assessment. Family at bedside. No concerns voiced at this time. Will transfer to ICU bed when available.
--- NOTE | 2024-05-02 11:38 | ANE.PACU2 ---
Inpatient post-anesthesia follow up: Airway intact: Yes Vital signs: Temperature 97.8 F Pulse Rate 73 Respiratory Rate 18 Blood Pressure 190/86 Pulse Oximetry Oxygen Delivery Me thod Room Air Oxygen Flow Rate Fraction of Inspir ed Oxygen Hydration adequate: Yes Nausea and vomiting: No Pain level: 1 Mental status: Baseline
--- NOTE | 2024-05-02 12:40 | SUR.EXTENDED ---
Report called to CHANDRIKA Yates. Patient then transferred via bed to ICU 6. Spouse present.
--- NOTE | 2024-05-02 13:14 | PC.NURSE ---
Report called to [facility]. Report given to CHANDRIKA Miner.
[2024-05-02] MEDS: ondansetron 2 mg/ML SDV 2 mL 4 MG IVP (16:01)
[2024-05-02] MEDS: HYDROcodone-acetaminophen 5-325 mg Tablet 1 TAB PO (16:23)
--- NOTE | 2024-05-02 18:24 | PC.NURSE ---
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 Minx closure devise used. Bed rest completed. Right groin remains soft and palpable with no hematoma or bruising noted. Pt sitting up in chair, resting her head on bedside table. Sinus rhythm noted on monitor. Bilat Dorsalis Pedal pulses palpable. Bilat tibal pulses fainter but palpable. Wound noted on right heel, pt would not allow dressing to be removed to visualize. Her left middle toe dark, gangrenous in appearance and odor., wound extends to mid upper foot with a blister noted on the outer aspect of upper foot.
[2024-05-02] MEDS: temazepam 15 mg Capsule PO (20:29)
[2024-05-03] VITALS (31 sets, daily range): BP systolic 107–142; BP diastolic 53–100; PULSE 64–78; RESP 0–27; TEMP 36.7; O2SAT 95–100; BMI 29.0
[2024-05-03] MEDS: acetaminophen 325 mg Tablet 650 MG PO (02:41)
[2024-05-03 04:40] LABS: Basophils % 0.5 %; Eosinophils # 0.3 10^3/uL (0.0-0.8); Eosinophils % 3.3 %; Hematocrit 36.7 % (36-47); Lymphocytes # 1.8 10^3/uL (0.8-4.8); Lymphocytes % 22.2 %; Mean Corpuscular HGB Conc 33.2 g/dL (30-55); Mean Corpuscular Hemoglobin 29.7 pg (27-33); Mean Corpuscular Volume 89.3 fl (85-98); Mean Platelet Volume 8.4 fL (7.4-10.4); Monocytes # 0.8 10^3/uL (0.2-0.9); Monocytes % 10.2 %; Neutrophils # 5.24 10^3/uL (1.8-7.7); Neutrophils % 63.3 %; Nucleated Red Blood Cells % 0 %; Platelet Count 232 10^3/cmm (157-399); Red Blood Count 4.11 10^6/uL (3.85-5.65); Red Cell Distribution Width 13.4 % (12.1-15.1); White Blood Count 8.26 10^3/uL (3.29-11.43)
[2024-05-03 05:04] LABS: Anion Gap 16.6 (5-19); Blood Urea Nitrogen 22 mg/dL (8-23); Calcium 8.3 mg/dL (8.5-10.5); Carbon Dioxide 20 mmol/L (22-29); Chloride 105 mmol/L (98-107); Creatinine Clr Calc Pharmacy 98.3954; Glomerular Filtration Rate 100.6 mL/min (90-130); Glucose 144 mg/dL (65-115); Osmolality Calculated 292 mOsm/kg (285-295); Potassium 3.6 mmol/L (3.5-5.1); Sodium 138 mmol/L (136-145)
--- NOTE | 2024-05-03 08:07 | P.DS_ITS ---
Discharge Providers Date of Admission: May 02, 2024 Date of Discharge: May 03, 2024 Attending Provider at Admission: Hakan Keane MD Attending Provider at Discharge: Hakan Keane M.D Primary Care Provider: Sayra Ann APN Reason for Visit Reason for Visit: Critical limb ischemia of left lower extremity Brief History: 63-year-old woman with past medical hist ory of peripheral artery disease and nonhealing wound on left foot with resting foot pain consistent with critical limb ischemia is here for peripheral revascularization of left lower extremity. She had revascularization of right lower extremity last months with improving healing. Hospital Course Hospital Course Patient had successful revascularization of left lower extremity with balloon angioplasty of left popliteal and SFA arteries. Has good runoff to foot. She stayed overnight and was stable. Patient discharged home on aspirin and plavix and will need close follow up with wound care. Physical Exam Narrative: GENERAL: Patient is alert, awake and oriented x3. [] NECK: No jugular vein distension. [] HEENT: No cyanosis. No icterus. No pallor. [] HEART: Regular S1 and S2. No murmur, rub or gallop. [] LUNGS: Clear to auscultate bilaterally. [] CENTRAL NERVOUS SYSTEM: Grossly nonfocal. [] EXTREMITIES: Lower extremities with 1+ edema bilaterally. Pulses dopplerable and PT palpable. 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 Routine Exams 05/02/24 09:00 Taken Laboratory Results WBC 8.26 10^3/uL (3.29-11.43) 05/03/24 04:30 RBC 4.11 10^6/uL (3.85-5.65) 05/03/24 04:30 Hgb 12.20 g/dL (11.27-16.99) 05/03/24 04:30 Hct 36.7 % (36-47) 05/03/24 04:30 MCV 89.3 fl (85-98) 05/03/24 04:30 MCH 29.7 pg (27-33) 05/03/24 04:30 MCHC 33.2 g/dL (30-55) 05/03/24 04:30 RDW 13.4 % (12.1-15.1) 05/03/24 04:30 Plt Count 232 10^3/cmm (157-399) 05/03/24 04:30 MPV 8.4 fL (7.4-10.4) 05/03/24 04:30 Neut % (Auto) 63.3 % 05/03/24 04:30 Lymph % (Auto) 22.2 % 05/03/24 04:30 [place] % (Auto) 10.2 % 05/03/24 04:30 Eos % (Auto) 3.3 % 05/03/24 04:30 Baso % (Auto) 0.5 % 05/03/24 04:30 Neut # (Auto) 5.24 10^3/uL (1.8-7.7) 05/03/24 04:30 Lymph # (Auto) 1.8 10^3/uL (0.8-4.8) 05/03/24 04:30 [place] # (Auto) 0.8 10^3/uL (0.2-0.9) 05/03/24 04:30 Eos # (Auto) 0.3 10^3/uL (0.0-0.8) 05/03/24 04:30 Baso # (Auto) 0.0 10^3/uL (0.0-0.1) 05/03/24 04:30 Nucleated RBC % (auto) 0 % 05/03/24 04:30 Nucleated RBCs # 0.0 /100WBC 05/03/24 04:30 Sodium 138 mmol/L (136-145) 05/03/24 04:30 Potassium 3.6 mmol/L (3.5-5.1) 05/03/24 04:30 Chloride 105 mmol/L (98-107) 05/03/24 04:30 Carbon Dioxide 20 mmol/L (22-29) L 05/03/24 04:30 Anion Gap 16.6 (5-19) 05/03/24 04:30 BUN 22 mg/dL (8-23) 05/03/24 04:30 Creatinine 0.6 mg/dL (0.5-0.9) 05/03/24 04:30 GFR Calculation 100.6 mL/min (90-130) 05/03/24 04:30 Glucose 144 mg/dL (65-115) H 05/03/24 04:30 Calculated Osmolality 292 mOsm/kg (285-295) 05/03/24 04:30 Calcium 8.3 mg/dL (8.5-10.5) L 05/03/24 04:30 Vitals Last Vital Signs Temp 98.0 F 05/03/24 07:41 Pulse 66 05/03/24 06:00 Resp 17 05/02/24 17:15 BP 120/87 05/02/24 17:15 Pulse Ox 97 05/02/24 17:15 O2 Del Method Room Air 05/02/24 17:15 Discharge Plan Discharge Patient Disposition: Home Prescriptions: New clopidogrel 75 mg Tablet 75 mg PO DAILY Qty: 90 3RF Continued aspirin 81 mg tablet,delayed release (DR/EC) 81 mg PO DAILY nicotine 21 mg/24 hr patch 24 hour 1 patch transdermal DAILY Qty: 28 3RF mupirocin 2 % ointment 1 applic topical BID Qty: 22 0RF pentoxifylline 400 mg tablet extended release 400 mg PO TID Qty: 90 3RF Rx Instructions: must administer with a meal/food ondansetron 4 mg tablet,disintegrating 4 mg PO Q8H PRN (Reason: nausea and vomiting) Qty: 30 0RF hydrocodone-acetaminophen 5-325 mg tablet 1 tab PO Q6H PRN (Reason: pain) 5 Days Qty: 30 0RF doxycycline hyclate 100 mg tablet 100 mg PO BID 10 Days Qty: 20 0RF glipizide 10 mg tablet 10 mg PO BID Qty: 180 2RF dapagliflozin propanediol [Farxiga] 10 mg tablet 10 mg PO DAILY Qty: 90 2RF simvastatin 10 mg tablet 10 mg PO DAILY Qty: 30 3RF No Action (DME) Dexcom G6 Sensor Device See Rx Instructions .Route Qty: 3 6RF Rx Instructions: As directed (DME) Dexcom G6 Irrigation Pump Installer Misc See Rx Instructions .Route Qty: 1 0RF Rx Instructions: As directed (DME) Dexcom G6 Transmitter Device See Rx Instructions .Route Qty: 1 0RF Rx Instructions: As directed Discharge Orders: Discharge Order (Routine); Ordered 05/03/24 Ordered By: Hakan Keane Referrals: Hakan Keane M.D [Physician] - Isidra Gauthier FNP [Nurse Practitioner] - 7-10 days (Appointment with Isidra Gauthier 05/10/24 at 1:00 PM, for site check and labs. ) Diet: Cardiac and Diabetic Activity: Increase activity as tolerated Patient Instructions: Peripheral Vascular Stent Placement (DC), Peripheral Vascular Angioplasty (DC) Discharge Date/Time: 05/03/24 08:59 Discharge Attestations Time Spent in Discharge Care*: greater than 30 min Quality Metrics Clinical Quality Measures [ No reported AMI, CVA or VTE this stay] Coding Level of Care Code Acute Code for Chg Nohemi
[2024-05-03] MEDS: clopidogrel 75 mg Tablet PO (08:56)
[2024-05-03] MEDS: aspirin 81 mg EC Tablet PO (09:12)
== END 2024-05-03 08:59 | disposition home or self-care (01) ==
LOC: CCL 08:43 → ICU 05-03 08:07
PROVIDERS: PCP Nurse Practitioner; Visit Provider Internal Medicine
DX: I70.222 Atherosclerosis of native arteries of extremities with rest pain, left leg (principal); I70.92 Chronic total occlusion of artery of the extremities; E11.69 Type 2 diabetes mellitus with other specified complication; E78.5 Hyperlipidemia, unspecified; Z79.82 Long term (current) use of aspirin; E11.40 Type 2 diabetes mellitus with diabetic neuropathy, unspecified; F17.200 Nicotine dependence, unspecified, uncomplicated; E11.621 Type 2 diabetes mellitus with foot ulcer
CPT/HCPCS: 36415; 37224; 75710; 80048; 85025; 85347; 96374; 96375; C1725; C1760; C1769; C1887; C1894; G0269; J0360; J1644; J2250; J2405; J2704; J3010; J7030; Q0163; Q9967

== ENCOUNTER → 2024-05-04 11:18 | Outpatient (BNVA) | payer BC, MEDICAID, SELFPAY | PROVIDERS: PCP Nurse Practitioner; Visit Provider Nurse Practitioner | DX: E11.9 Type 2 diabetes mellitus without complications (principal) | CPT/HCPCS: 80053 ==

== ENCOUNTER 2024-08-04 11:32 | Day surgery (SDC) | payer BC, MEDICAID, SELFPAY ==
[2024-08-04] VITALS (7 sets, daily range): BP systolic 89–177; BP diastolic 41–73; PULSE 61–69; RESP 18; TEMP 36.3–36.6; O2SAT 96–100
[2024-08-04 12:46] LABS: Glucose Point of Care 137 mg/dL (70-110)
--- NOTE | 2024-08-04 12:51 | P.ANESASSM_ITS ---
Pre-Anesthetic Assessment Height/Weight: Height 1.65 m Weight 79.379 kg Temp Pulse Resp BP Pulse Ox O2 Del Method 97.4 F L 69 18 147/72 99 Room Air 08/04/24 12:45 08/04/24 12:45 08/04/24 12:45 08/04/24 12:45 08/04/24 12:45 08/04/24 12:47 Preop Diagnosis: Dry gangrene left third toe Operation Date: 08/04/24 13:15 Proposed Procedures p Left third toe amputation(Left) - Luis Marquez DPM Familial anesthetic complications: none Was Beta Sherly taken within 24 hours: N/A Was Clonidine taken within 24 hours: N/A Last intake: Intake Last Liquid Date 08/03/24 Last Liquid Time 18:00 Last Solid Date 08/03/24 Last Solid Time 18:00 Last Intake: 18:00 Social Tobacco (1ppd) and No alcohol Exam alert and oriented x 3 Airway Submandibular: within normal limits Cervical ROM: within normal limits Mallampati: Class I Dentition: other (mostly missing) History/ROS No significant history except as noted Pulmonary Chronic Obstructive Pulmonary Disease CV/HEM Peripheral Vascular Disease None reported Hepatic None reported GI None reported Metabolic Diabetes Mellitus and Hyperlipidemia [facility] None reported Neuropsych None reported Anesthetic Plan ASA status: 3 Anesthesia: Anesthesia Evaluation and MAC Risk of > 500 ml blood loss (7ml/kg in children): No Medications/Allergies Home Medications Medication Instructions Recorded Confirmed Last Taken Type glipizide 10 mg tablet 10 mg PO BID #180 tabs 12/02/23 08/03/24 05/01/24 Rx Farxiga 10 mg tablet 10 mg PO DAILY #90 tabs 02/25/24 08/03/24 07/31/24 Rx (dapagliflozin propanediol) mupirocin 2 % topical ointment 1 applic topical BID #22 grams 03/05/24 08/03/24 04/02/24 19:00 Rx pentoxifylline 400 mg 400 mg PO TID #90 tabs 03/15/24 08/03/24 04/02/24 19:00 Rx tablet,extended release simvastatin 10 mg tablet 10 mg PO DAILY #30 tabs 03/15/24 08/03/24 05/01/24 21:00 Rx aspirin 81 mg tablet,delayed 81 mg PO DAILY 03/29/24 08/03/24 08/01/24 History release ondansetron 4 mg disintegrating 4 mg PO Q8H PRN nausea and 04/04/24 08/03/24 Unknown Rx tablet vomiting #30 tabs nicotine 21 mg/24 hr daily 1 patch transdermal DAILY #28 ea 04/24/24 08/03/24 08/03/24 Rx transdermal patch clopidogrel 75 mg tablet 75 mg PO DAILY #90 tabs 05/03/24 08/03/24 08/04/24 Rx blood-glucose meter,continuous #1 ea 05/04/24 07/31/24 Unknown Rx (Dexcom G6 Lace Roller Operator) blood-glucose sensor (Dexcom G6 #3 ea 05/04/24 07/31/24 Unknown Rx Sensor device) blood-glucose transmitter (Dexcom #1 ea 05/04/24 07/31/24 Unknown Rx G6 Transmitter device) hydrocodone 5 mg-acetaminophen 325 1 tab PO Q6H pain 7 days #28 tabs 06/02/24 08/03/24 08/03/24 Rx mg tablet hydrocodone 5 mg-acetaminophen 325 1 tab PO Q6H PRN pain 7 days #28 08/03/24 Unknown Rx mg tablet tabs Allergies Allergy/AdvReac Type Severity Reaction Status Date / Time cephalexin Allergy Unknown Verified 07/31/24 14:30 codeine Allergy Unknown Verified 07/31/24 14:30 gabapentin Allergy Unknown Verified 07/31/24 14:30 metformin Allergy Unknown Verified 07/31/24 14:30 morphine Allergy Unknown Verified 07/31/24 14:30 pregabalin [From Lyrica] Allergy Unknown Verified 07/31/24 14:30 Sulfa (Sulfonamide Allergy Unknown Verified 07/31/24 14:30 Antibiotics) [facility] Anesthesia Medical History Cellulitis Left foot pain PVD (peripheral vascular disease) Neuropathy Diabetes No pertinent family history Family History Grandmother Cancer breast-- Family/Other Cancer nieces x 2- breast aunt- breast Mother Chronic kidney disease (CKD) Grandfather Chronic kidney disease (CKD) maternal Father Alzheimer's dementia Sister Alzheimer's dementia Denies family history of Diabetes Clotting disorder Heart disease Bleeding disorder Thyroid disease Stroke Social History Smoking and tobacco/nicotine status: current every day tobacco/nicotine user Female Reproductive History Para: 4 Spontaneous abortions: No Data Anesthesia Cardiac Studies: No Data to Display
[2024-08-04] MEDS: sodium chloride 0.9% 1,000 ML 30 ML IV (12:52)
[2024-08-04] MEDS: vancomycin 1,500 MG/300 ML PIGGYBACK 200 MG IV (12:53)
--- NOTE | 2024-08-04 12:56 | P.HPUD_ITS ---
Surgery/Procedure H&P Update DATE OF PROCEDURE: August 04, 2024 DATE H&P PERFORMED: 07/31/24 H&P UPDATE INFORMATION: I have reviewed H&P completed within last 30 days, I have examined patient prior to procedure, No changes to prior documentation and [place] [facility] [place] date indicated PREOP DIAGNOSIS: Dry gangrene left third toe PLANNED PROCEDURE: Operation Date: 08/04/24 13:15 Proposed Procedures p Left third toe amputation(Left) - Luis Marquez DPM
[2024-08-04] MEDS: BUPivacaine 0.5% INJ 10 mL INJECTION (13:12)
[2024-08-04] MEDS: lidocaine 1% 10 ML INJ XX (13:12)
--- NOTE | 2024-08-04 13:38 | PM.OP ---
Operative Report Date of procedure: August 04, 2024 Pre-op diagnosis: Dry gangrene I96 Diabetes mellitus with diabetic polyneuropathy E11.42 Critical limb ischemia of right lower extremity I70.221 Diabetic ulcer of other part of left foot associated with type 2 diabetes mellitus, unspecified ulcer stage E11.621; L97.529 Diabetes mellitus type: type 2 Diabetic foot ulcer location: other Laterality: left Non-pressure ulcer stage: unspecified non-pressure ulcer stage Left foot pain M79.672 Post-op diagnosis: Dry gangrene I96 Diabetes mellitus with diabetic polyneuropathy E11.42 Critical limb ischemia of right lower extremity I70.221 Diabetic ulcer of other part of left foot associated with type 2 diabetes mellitus, unspecified ulcer stage E11.621; L97.529 Diabetes mellitus type: type 2 Diabetic foot ulcer location: other Laterality: left Non-pressure ulcer stage: unspecified non-pressure ulcer stage Left foot pain M79.672 Post-op findings: Clean margins, healthy third metatarsal head, viable adjacent soft tissue amputation site Procedure done: Left third toe amputation. CPT code 18595 Implants: 4-0 nylon Specimens removed/disposition: No specimens Pathology: Left third toe sent to pathology for permanent Surgeon: Luis Marquez DPM [employer] Account Manager: Ned Estimated blood loss: 2mL 8 IV fluids: See intraoperative documentation Urine output: None Complications: No complications Brief History: Dry gangrene left Third toe has more viable skin adjacent to the base of the wound more indicative of more predictable and successful healing after toe amputation through the metatarsal phalangeal joint. Patient would like to proceed with this this Wednesday. I reviewed at length with the patient, the risks, potential complications, benefits, alternatives, expectations, and typical outcomes associated with the surgery. The risks and potential complications were explained in detail, including but not limited to infection, wound dehiscence or soft tissue complications, bleeding and hematoma, chronic edema, neuritis or nerve damage producing numbness or chronic pain, CRPS, failure to relieve pain or worsening pain, thick / painful / unsightly scar, limited motion / stiffness, malposition, delayed union, malunion, or nonunion, fracture, reaction to implants, anesthetic complications, venous thromboembolism, and deformity recurrence. I discussed the notion of no regrets with the patient as it pertains to complications and outcomes. The patient seemed to understand the nature of the proposed care and required convalescence. They asked appropriate questions, answered to their satisfaction. They are aware no guarantees can be made as to a satisfactory outcome and they understand there may be other possible unforeseen complications or outcomes not listed here that will be treated accordingly if they arise. There were no written or implied guarantees given to the patient. They gave informed consent to proceed. Planning on outpatient surgery this Sunday August 04, 2024 left third toe amputation through metatarsal phalangeal joint with possible wound VAC application. Discussed risk of nonhealing and ascending infection postoperatively that may necessitate higher level of amputation patient is in agreement's wishes to proceed. Procedure: Under mild sedation the patient was brought to the operating room and remained on the gurney in supine position. A timeout was performed. Anesthesia was then administered by the anesthesia service. Local anesthesia was injected by myself consisting of one-to-one mixture 1% lidocaine and 0.5% Marcaine plain total of 20 cc in a left third ray block fashion. Well-padded pneumatic tourniquet was applied to the left ankle. The left lower extremity was scrubbed, prepped and draped utilizing normal aseptic technique. Left foot was elevated and tourniquet inflated to 250 mmHg. No Esmarch utilized. Attention was directed to the left third toe where dry gangrene was appreciated distally Devitalized tissue and bone down towards the proximal phalanx. #15 blade utilized to sharply disarticulate the left third toe through the metatarsal phalangeal joint with clean margins appreciated post amputation, third toe sent to pathology for permanent. Incision was irrigated with saline solution and closed with 4-0 nylon. Dressing with Adaptic, sterile 4 x 4's, Kerlix and Coban without compression due to underlying PAD. Postop shoe was applied. Tourniquet was deflated and a prompt hyperemic response was noted to the remaining digits of the left foot 1, 2, 4 and 5. Patient tolerated the procedure and anesthesia well and was transferred to the PACU with vital signs stable and vascular status intact. Following a period of postoperative monitoring, discharged home without home care instructions and scheduled follow-up.
[2024-08-04] MEDS: diphenhydrAMINE 50 mg/mL SDV 1mL ×2 (13:51→13:52)
--- NOTE | 2024-08-05 14:27 | ANE.PACU2 ---
Inpatient post-anesthesia follow up: Airway intact: Yes Vital signs: Temperature 97.8 F Pulse Rate 65 Respiratory Rate 18 Blood Pressure 177/73 Pulse Oximetry 100 Oxygen Delivery Me thod Room Air Oxygen Flow Rate Fraction of Inspir ed Oxygen Hydration adequate: Yes Nausea and vomiting: No Pain level: 1 Mental status: Baseline
== END 2024-08-04 14:27 | disposition home or self-care (01) ==
PROVIDERS: PCP Nurse Practitioner; Visit Provider Podiatrist Foot & Ankle Surgery
PROC: (CPT 28820; principal; 2024-08-04 13:05)
DX: I96 Gangrene, not elsewhere classified (principal); E11.42 Type 2 diabetes mellitus with diabetic polyneuropathy; I70.221 Atherosclerosis of native arteries of extremities with rest pain, right leg; E11.621 Type 2 diabetes mellitus with foot ulcer; L97.529 Non-pressure chronic ulcer of other part of left foot with unspecified severity; F17.200 Nicotine dependence, unspecified, uncomplicated; J44.9 Chronic obstructive pulmonary disease, unspecified; E78.5 Hyperlipidemia, unspecified; Z79.82 Long term (current) use of aspirin
CPT/HCPCS: 28820; 36416; 82962; 88305; 88311; J1200; J2704; J3370; J3490; J7030

== ENCOUNTER → 2024-12-14 11:27 | Outpatient (BNVA) | payer MEDICARE, SELFPAY | PROVIDERS: PCP Nurse Practitioner; Visit Provider Podiatrist Foot & Ankle Surgery | DX: E11.49 Type 2 diabetes mellitus with other diabetic neurological complication (principal); I70.221 Atherosclerosis of native arteries of extremities with rest pain, right leg; E11.42 Type 2 diabetes mellitus with diabetic polyneuropathy; E11.69 Type 2 diabetes mellitus with other specified complication; Z89.422 Acquired absence of other left toe(s) | CPT/HCPCS: 73630; 99214 ==

== ENCOUNTER → 2024-12-22 11:01 | Outpatient (BNVA) | payer MEDICARE, SELFPAY | PROVIDERS: PCP Nurse Practitioner; Visit Provider Internal Medicine | DX: I73.9 Peripheral vascular disease, unspecified (principal); E11.52 Type 2 diabetes mellitus with diabetic peripheral angiopathy with gangrene; Z79.84 Long term (current) use of oral hypoglycemic drugs; M79.672 Pain in left foot; M79.671 Pain in right foot; Z79.01 Long term (current) use of anticoagulants; Z79.82 Long term (current) use of aspirin; F17.200 Nicotine dependence, unspecified, uncomplicated | CPT/HCPCS: 99214 ==

== ENCOUNTER 2024-12-26 07:44 | Outpatient (CLI) | payer MEDICARE, SELFPAY ==
[2024-12-26 08:46] LABS: Basophils # 0.1 10^3/uL (0.0-0.1); Basophils % 0.6 %; Eosinophils # 0.3 10^3/uL (0.0-0.8); Eosinophils % 3.7 %; Hematocrit 46.4 % (36-47); Lymphocytes # 2.1 10^3/uL (0.8-4.8); Lymphocytes % 25.9 %; Mean Corpuscular HGB Conc 32.8 g/dL (30-55); Mean Corpuscular Hemoglobin 29.5 pg (27-33); Mean Corpuscular Volume 90.1 fl (85-98); Mean Platelet Volume 8.6 fL (7.4-10.4); Monocytes # 0.6 10^3/uL (0.2-0.9); Monocytes % 7.1 %; Neutrophils # 5.09 10^3/uL (1.8-7.7); Neutrophils % 62.2 %; Nucleated Red Blood Cells % 0 %; Platelet Count 217 10^3/cmm (157-399); Red Blood Count 5.15 10^6/uL (3.85-5.65); Red Cell Distribution Width 12.8 % (12.1-15.1); White Blood Count 8.18 10^3/uL (3.29-11.43)
[2024-12-26 09:08] LABS: INR 0.87 (0.83-1.21); Prothrombin Time (Patient) 12.5 Seconds (12.0-15.1)
[2024-12-26 09:12] LABS: Anion Gap 15.5 (5-19); Blood Urea Nitrogen 24 mg/dL (8-23); Calcium 9.4 mg/dL (8.5-10.5); Carbon Dioxide 26 mmol/L (22-29); Chloride 101 mmol/L (98-107); Glucose 161 mg/dL (65-115); Osmolality Calculated 294 mOsm/kg (285-295); Potassium 4.5 mmol/L (3.5-5.1); Sodium 138 mmol/L (136-145)
== END 2024-12-26 07:45 | disposition home or self-care (01) ==
PROVIDERS: PCP Nurse Practitioner; Visit Provider Internal Medicine
DX: I70.221 Atherosclerosis of native arteries of extremities with rest pain, right leg (principal); R58 Hemorrhage, not elsewhere classified; M79.671 Pain in right foot; Z89.422 Acquired absence of other left toe(s); E11.42 Type 2 diabetes mellitus with diabetic polyneuropathy; E11.49 Type 2 diabetes mellitus with other diabetic neurological complication
CPT/HCPCS: 36415; 80048; 85025; 85610; 99214

== ENCOUNTER 2025-01-11 06:01 | Outpatient (CLI) | payer MEDICARE, SELFPAY ==
[2025-01-11] VITALS (72 sets, daily range): BP systolic 118–166; BP diastolic 47–102; PULSE 62–112; RESP 11–23; TEMP 36.6–37.3; O2SAT 93–98; BMI 28.3; BMI 30.6
--- NOTE | 2025-01-11 06:00 | XACV_ITS ---
Ht: 165 cm Wt: 77 kg BSA: 1.90 m2 Any Known Allergies: Other Gender: Female : 1960 Exam Type: Invasive Peripheral Vascular Procedure(s): Procedure Description: Peripheral Cath Diagnostic Procedure Procedure Description: Lower extremities' angiography Procedure Description: Peripheral vascular Intervention Procedure Description: PV Balloon Exam Priority: Routine Lower Extremity Diagnostic Findings INDICATION: Non-healing wound of right lower extremity/resting leg pain/ critical limb ischemia. Right lower extremity findings:Right common iliac artery is patent. Right external iliac artery has mild disease. Right common femoral artery is patent. Right profunda artery is patent. RIGHT SFA has diffuse disease.Total occlusion of right popliteal artery. Severe in-stent restenosis of SFA to popliteal stent. Distal popliteal artery reconstitutes via collaterals. Below the knee arteries are diffusely diseased with small caliber vessels. Patent anterior tibial artery and posterior artery with diffuse disease.. Left lower extremity: Left common iliac artery is patent. Left external iliac artery is patent. Left common femoral artery is patent. Left profunda artery is patent. Left SFA as well as severe proximal vessel disease. Small caliber vessel. Popliteal artery is totally occluded with reconstitution of distal vessels with collaterals. Two-vessel runoff to foot with patent peroneal artery and posterior tibial artery.. Right Mid-longitudinal Superficial Femoral Artery: 99% stenosis. Right Mid-longitudinal Popliteal Artery: 100% stenosis. Lower Extremity Interventional Findings Right Mid-longitudinal Superficial Femoral Artery: 99% stenosis treated with AB ARMADA 35 OTW [id number] and Lutonix DCB 5.0 X 150mm. Right Mid-longitudinal Popliteal Artery: 100% stenosis treated with AB ARMADA 14 OTW [id number] and AB ARMADA 35 OTW [id number]. Procedure detail: After diagnostic images were obtained, we switched short sheath to long 45 cm Cook sheath from left common femoral artery into right external iliac artery. Using seeker support catheter and Glidewire we crossed totally occluded vessel and was put in distal anterior tibial artery. We dilated the popliteal artery and anterior tibial artery with [id number] and 4.0 x 100 mm balloon. This was followed by balloon angioplasty of SFA and popliteal artery stent with 5.0 x 150 mm Lutonix drug-coated balloon. Final angiogram was performed that showed patent inline flow from iliac artery to below the knee vessel. Patient left quality lab assoc in a stable condition. . Conclusions Critical right lower extremity peripheral artery disease with subtotal occlusion of SFA and total occlusion of popliteal artery. Status post successful revascularization with balloon angioplasty. He has two-vessel runoff to foot. However vessels are small caliber and diffusely diseased. Patient continues to smoke. Had detailed discussion that if she does not quit smoking, will likely have reocclusion. . Staged intervention of left lower extremity as a staged procedure. Right Mid-longitudinal Superficial Femoral Artery was treated with two Balloon. Right Mid-longitudinal Popliteal Artery was treated with two Balloon. Recommendations Dual antiplatelet therapy with aspirin and plavix. Outpatient cardiology follow up in 1 week. Hemodynamic Data Phase:Rest AO : 187.0 / 56.0 ( 105.0 ) @ 9:21:00 AM 113.0 / 55.0 ( 82.0 ) @ 9:49:00 AM 145.0 / 43.0 ( 82.0 ) @ 10:29:00 AM Access Site Site: Left Femoral artery Sheath Size: 6 Fr Hemost... Method: Suture Hemost... Success: Successful Procedure Details Findings Procedure Consent Obtained. Admit Source: Out Patient. Pre-Procedure Time Out. Identified patient by full name and date of as verbalized by the patient/guarantor. Does the consent match the physician's order: Yes. Accurate & Complete Informed Consent: Yes. Inpatient/Outpatient History & Physical on Chart: Yes. If H&P is completed, is and addenduem needed: No; If yes, is the addendum complete: N/A. Visualize and Verify Site with Patient/Guarantor: N/A. Relevant Radiology Images available: Yes. The risks, benefits, and alternatives of sedation and/or procedure were discussed by physician. The patient agrees to continue. Procedure started. Physician arrived. Current diagnosis: PAD, Critical limb ischemia. PERRLA. Strong, equal hand precision lens generator bilaterally. Lungs clear x 5 lobes. IV Site on Arrival: 20 gauge in the right wrist. IV Fluids: 0.9% NaCl at KVO. 0 mL infused prior to quality lab assoc. Pre Procedural Pulses: bilateral radial was 2+. Pre Procedural Pulses: bilateral posterior tibial was Doppled. Pre Procedural Pulses: bilateral dorsalis pedis was Doppled. Oxygen started at 2liters/min via nasal canula. bilateral groins was prepped with chloroprep then draped in the usual sterile fashion. Baseline sample Acquired. HR: 68 BPM. Physician scrubbed in. Time out performed with cath team. Lidocaine 1% infiltrated to the left groin. An attempt to gain access to the left femoral artery was unsuccessful. Manual pressure was held as needed to stop the bleeding. Arterial access obtained with micropuncture set. A 5Fr UF catheter in over wire. Wire out. Glidewire in through UF catheter. UF advanced to right common iliac. Glidewire out. Right common iliac selected and arteriogram with runoff performed @ 10 mL/sec for a total of 30 mL. Glidewire in through UF catheter. UF catheter out OTW. Glidewire advanced to right popliteal. Short sheath exchanged for 6fr 45cm flexor sheath over the glidewire. DSA imaging performed to better visualize distal vessels below the knee. Seeker catheter in OTW to anterior tibial. Wire out. Hand injection through the seeker. 300cm runthrough wire in through seeker. Seeker catheter out OTW. Balloon inserted over the wire to the popliteal. Inflation number : 1 A ARMPATRICIA 14 OTW [id number] was prepped and advanced across the Popliteal, Right , then inflated to 8 LULU for 2:00 seconds. Balloon out. Seeker catheter in OTW. Runthrough wire out. Glidewire in through seeker. Seeker out OTW. DSA imaging performed below the knee to better visualize distal vessels. Balloon inserted over the wire to the popliteal. Inflation number : 2 A ARMADA 35 OTW [id number] was prepped and advanced across the Popliteal, Right , then inflated to 4 LULU for 1:03 seconds. Inflation number: 3 The AB ARMADA 35 OTW [id number] was reinflated across the Popliteal, Right, to 8 LULU for 1:32 seconds. Ballon repositioned to distal left SFA. Inflation number: 1 The AB ARMADA 35 OTW [id number] was reinflated across the Superficial Femoral, Right, to 10 LULU for 1:32 seconds. Inflation number: 2 The AB ARMADA 35 OTW [id number] was reinflated across the Superficial Femoral, Right, to 10 LULU for 1:31 seconds. Balloon out. DSA imaging performed below the knee to better visualize distal vessels. DSA imaging performed below the knee to better visualize distal vessels. Balloon inserted over the wire to the superficial femoral. Inflation number : 3 A Lutonix DCB 5.0 X 150mm was prepped and advanced across the Superficial Femoral, Right , then inflated to 6 LULU for 2:01 seconds. Inflation number: 4 The Lutonix DCB 5.0 X 150mm was reinflated across the Superficial Femoral, Right, to 8 LULU for 1:01 seconds. Balloon out. Right common femoral selected and arteriogram with runoff performed @ 10 mL/sec for a total of 30 mL. 6fr 45cm flexor sheath exchanged for new 6fr short sheath over the glidewire. Wire out. ACT drawn. Results 218 seconds. Therapeutic limits - pre-heparin administration 90-150 seconds and monitoring heparin during a vascular procedure >250 seconds. Sheath injected in Left common femoral artery and runoff performed. A Left femoral angiogram was performed to determine safe placement of closure device. Post Procedure: Pulses reassessed and unchanged. PERRLA. Strong, equal hand precision lens generator bilaterally. No VTE prophylaxis required. Medication's Wasted: Lidocaine 1% = 10 mL. Medication's Wasted: Heparin = 1000 units. Medication's Wasted: Other = Fentanyl 50mcg/Versed 1mg. Total IV fluids: 100 mL. A Suture was successful obtaining hemostatsis at the Left Femoral artery insertion site. Sheath(s) sutured into position with 2-0 silk and sterile 4x4's and Op-site applied over the site. No oozing or signs and symptoms of hematoma noted. Arterial sheath flushed and connected to tranducer and pressure bag with heparinized saline. Post-op diagnosis: Totally occluded right popliteal. Status post balloon angioplasty. Complications: None. Estimated blood loss: 5mL-10mL. Responsiveness - Normal response to verbal stimuli; alert and oriented, PERRLA. Airway - Unaffected, no intervention required; spontaneous ventilation. Circulation: W/N/L, pulses unchanged. Nausea/Vomiting: No. Procedure completed. Patient transferred by bed to ICU. Vital chart was stopped. Procedure Medications Start: 8:07 AM Stop: 8:07 AM Medication: Versed Amount: 1 mg Route: I.V. Start: 8:07 AM Stop: 8:07 AM Medication: Fentanyl Amount: 50 mcg Route: I.V. Start: 8:22 AM Stop: 8:22 AM Medication: Hydralazine Amount: 10 mg Start: 8:28 AM Stop: 8:28 AM Medication: Heparin Amount: 5000 units Route: I.V. Start: 8:33 AM Stop: 8:33 AM Medication: Fentanyl Amount: 50 mcg Route: I.V. Start: 8:36 AM Stop: 8:36 AM Medication: Versed Amount: 1 mg Route: I.V. Start: 8:41 AM Stop: 8:41 AM Medication: Heparin Amount: 1000 units Route: I.V. Start: 8:51 AM Stop: 8:51 AM Medication: Fentanyl Amount: 50 mcg Route: I.V. Start: 8:53 AM Stop: 8:53 AM Medication: Fentanyl Amount: 25 mcg Route: I.V. Start: 8:56 AM Stop: 8:56 AM Medication: Versed Amount: 1 mg Route: I.V. Start: 9:01 AM Stop: 9:01 AM Medication: Heparin Amount: 1000 units Route: I.V. Start: 9:01 AM Stop: 9:01 AM Medication: Fentanyl Amount: 25 mcg Route: I.V. Start: 9:17 AM Stop: 9:17 AM Medication: Fentanyl Amount: 50 mcg Route: I.V. Start: 9:31 AM Stop: 9:31 AM Medication: Heparin Amount: 1000 units Route: I.V. Start: 9:32 AM Stop: 9:32 AM Medication: Plavix Amount: 300 mg Route: P.O. I, the attending physician, have reviewed and verified all procedure medications. Yes, all medications given per verbal order History/Risk Factors Hypertension: No Dyslipidemia: No Peripheral Arterial Disease (PAD): Yes Obesity: No Renal Disease: No Tobacco Use: Current/Recent(w/in 1 year) Prior Interventions PCI: No CABG: No Valve Surgery: No Report Signatures Finalized by Hakan Keane MD on 01/28/2025 02:11 PM
[2025-01-11] MEDS: diphenhydrAMINE 50 mg Capsule PO (06:45)
--- NOTE | 2025-01-11 07:49 | W.PM.OPSUD ---
Surgery/Procedure H&P Update DATE OF PROCEDURE: January 11, 2025 DATE H&P PERFORMED: 12/22/24 H&P UPDATE INFORMATION: I have reviewed H&P completed within last 30 days, I have examined patient prior to procedure and No changes to prior documentation PREOP DIAGNOSIS: Non-healing wound of right lower extremity/resting leg pain/ critical limb PRIMARY INDICATION FOR PROCEDURE: Non-healing wound of right lower extremity/resting leg pain/ critical limb ischemia PLANNED PROCEDURE: Operation Date: 01/11/25 07:00 Proposed Procedures p Peripheral Diagnostic - Periph Angio Bilat(Bilateral) - Hakan Keane M.D Possible peripheral intervention Patient has complex peripheral artery disease history. Discussed in detail about risks and benefits. PATIENT REASSESSED PRIOR TO SEDATION, WITH NO CHANGE NOTED: Yes PHYSICAL EXAM: alert, oriented x 3, clear to auscultation bilaterally and regular rate & rhythm OTHER PERTINENT EXAM FINDINGS: Gangrenous right 5th toe changes. Right heel wound AIRWAY EVAL/ANESTHESIA PLAN: normal airway, ASA III, Local Anesthesia, Risks, benefits & alternatives of sedation and/or procedure discussed and Patient agrees to continue as planned ADDITIONAL INFORMATION: Moderate sedation
[2025-01-11] MEDS: sodium chloride 0.9% 1,000 ML 50 ML IV (09:56)
--- NOTE | 2025-01-11 09:59 | PC.NURSE ---
Educated patient on importance of keeping left lower extremity straight, sheath in place, may sit to 30 degrees max, call light use. Patient complains of lower back pain 03/08, reports this is chronic and was present before cath. Patient is currently resting in bed RR even non labored. Pulses marked present, no hemotoma. No chest pain. IVF at 50ml/hr. Patient verbalizes understanding of teachings.
--- NOTE | 2025-01-11 10:34 | PM.PROC ---
Procedure Note: Date of procedure: 01/11/25 Pre-procedure diagnosis: Critical limb ischemia of right lower extremity Post-procedure diagnosis: other (Total occlusion of right popliteal artery. Severe in-stent restenosis of SFA to popliteal stent. S/p successful revascularization with balloon angioplasty) Procedure: Total occlusion of popliteal artery s/p intervention with balloon angioplasty. Brisk flow to the foot. Left SFA has severe disease with occlusion of popliteal artery Smoking cessation emphasized otherwise will have re-occlusion of vessels Staged intervention of left lower extremity. Dual antipletelet therapy with aspirin and plavix Performing Provider: Hakan Keane Estimated blood loss (mL): 10 Complications: None Condition: stable Disposition: floor Coding Level of Care Code Acute Code for [place] Fwfredis
--- NOTE | 2025-01-11 10:47 | PC.NURSE ---
Verbal order from Dr. Keane at bedside for Fentanyl 12.5 IVP once.
[2025-01-11] MEDS: fentaNYL 50 mcg/mL INJ 2mL 12.5 MCG IVP (11:01)
[2025-01-11] MEDS: sodium chloride 0.9% 1,000 ML 100 ML IV (11:27)
[2025-01-11] MEDS: ondansetron 2 mg/ML SDV 2 mL 4 MG IVP (11:49)
[2025-01-11 13:25] LABS: Partial Thromboplastin Time 34.3 SECONDS (23.9-36.7)
[2025-01-11] MEDS: fentaNYL 50 mcg/mL INJ 2mL IVP (15:03)
--- NOTE | 2025-01-11 15:35 | PC.NURSE ---
Sheath pull: PTT resulted 34.3 well within range to pull. Sheath pulled per protocol. No complications. No hemotoma.
--- NOTE | 2025-01-11 15:37 | PC.NURSE ---
Patient and family very angry that patient is not allowed at this time to ambulate or sit in recliner. Extensive education provided on sheath pull and down time, including risk of fatal bleed, if patient is to ambulate with sheath or directly after sheath pull. Patient angry and using profanity. Patient states, The doctor is just trying to punish me for leaving early last time! Patient educated on whole process of Cath including time to spend lying flat. Patient positioned as appropriate for post sheath pull and attempts made to provide patient comfort. Patient stated, The doctor told me I could go home within four hours of this procedure, I have been here since 6AM! Dr. Keane called to speak with patient as patient is asking for AMA papers.
--- NOTE | 2025-01-11 17:33 | PC.NURSE ---
Patient refuses food and drink offered throughout shift. Patient states she will not eat or drink until she is able to walk.
[2025-01-11] MEDS: clindamycin 150 mg Capsule 300 MG PO (18:27)
[2025-01-11] MEDS: HYDROcodone-acetaminophen 7.5-325 mg Tablet 1 TAB PO (18:27)
--- NOTE | 2025-01-11 20:08 | PM.SDS ---
Short Stay Summary Providers Date of Admit/Discharge: 01/28/25 Attending Provider: Hakan Keane M.D Primary Care Provider: Sayra Ann APN Chief Complaint: I70.221 HPI History of Present Illness Orville Robert is a 64 year old female with critical limb ischemia of the right lower extremity with resting pain and non healing wound. Plan for peripheral angiogram with possible intervention Review of Systems General: Reports: 10 or more systems reviewed and unremarkable except in HPI and below Home Meds/Allergies Home Medications and Allergies Home Medications ?Medication ?Instructions ?Recorded ?Confirmed ?Type aspirin 81 mg tablet,delayed 81 mg PO DAILY 03/29/24 01/15/25 History release dapagliflozin propanediol 10 mg 10 mg PO DAILY 01/10/25 01/15/25 History tablet (Farxiga) glipizide 10 mg tablet 10 mg PO BID 01/10/25 01/15/25 History Allergies Allergy/AdvReac Type Severity Reaction Status Date / Time cephalexin Allergy Unknown Verified 01/15/25 10:04 codeine Allergy Unknown Verified 01/15/25 10:04 gabapentin Allergy Unknown Verified 01/15/25 10:04 metformin Allergy Unknown Verified 01/15/25 10:04 morphine Allergy Unknown Verified 01/15/25 10:04 pregabalin (From Lyrica) Allergy Unknown Verified 01/15/25 10:04 Sulfa (Sulfonamide Allergy Unknown Verified 01/15/25 10:04 Antibiotics) PFSH Acute PFSH: Medical History Cellulitis Left foot pain PVD (peripheral vascular disease) Neuropathy Diabetes No pertinent family history Family History Grandmother Cancer breast-- Family/Other Cancer nieces x 2- breast aunt- breast Mother Chronic kidney disease (CKD) Grandfather Chronic kidney disease (CKD) maternal Father Alzheimer's dementia Sister Alzheimer's dementia Denies family history of Diabetes Clotting disorder Heart disease Bleeding disorder Thyroid disease Stroke Social History Smoking and tobacco/nicotine status: current every day tobacco/nicotine user Female Reproductive History: Para: 4 Spontaneous abortions: No Vitals/I&O/Wt Last Vital Signs Temp 98.8 F 01/11/25 14:00 Pulse 67 01/11/25 16:37 Resp 17 01/11/25 15:03 BP 125/49 01/11/25 11:25 Pulse Ox 96 01/11/25 15:03 O2 Del Method Room Air 01/11/25 14:30 01/11/25 01/11/25 01/11/25 06:59 14:59 22:59 Intake Total 72.5 / 72.5 100 / 172.5 Output Total 50 / 50 Balance 22.5 / 22.5 100 / 122.5 Weight last 48 hrs Weight 184 lb Weight 170 lb Physical Exam Narrative: GENERAL: Patient is alert, awake and oriented x3. [] NECK: No jugular vein distension. [] HEENT: No cyanosis. No icterus. No pallor. [] HEART: Regular S1 and S2. No murmur, rub or gallop. [] LUNGS: Clear to auscultate bilaterally. [] CENTRAL NERVOUS SYSTEM: Grossly nonfocal. [] EXTREMITIES: Lower extremities with 1+ edema bilaterally. Pulses dopplerable with palpable PT post intervention Hospital Course Hospital Course Patient underwent successful revascularization of popliteal artery and subtotally occluded SFA stent. Balloon angioplasty was performed. Patient has good two-vessel runoff to right foot. However vessels are small caliber and diffusely diseased. Patient continues to smoke. I had a detailed discussion that if she does not quit smoking, very high chances of reocclusion of the vessels. She shows understanding however refuses to quit smoking at this time. Has severe left lower extremity symptoms of resting foot pain. Plan for staged intervention. Patient wanted to go home same day and as was stable, discharged in a stable condition. SSS Data Data Completed and Pending: Pending at discharge Category Date Time Status MEDICAL RESEARCH TECH request for service Routin e Exams 01/11/25 06:00 Taken Basic Metabolic P harsh AM LABS Lab 01/12/25 04:00 Ordered Complete Blood Co unt w/Auto AM LABS Lab 01/12/25 04:00 Ordered Discharge Plan Discharge Patient Disposition: Home Prescriptions: Continued aspirin 81 mg tablet,delayed release (DR/EC) 81 mg PO DAILY (DME) Dexcom G6 Sensor Device See Rx Instructions .Route Qty: 3 6RF Rx Instructions: As directed (DME) Dexcom G6 Transportation Program Director Misc See Rx Instructions .Route Qty: 1 0RF Rx Instructions: As directed (DME) Dexcom G6 Transmitter Device See Rx Instructions .Route Qty: 1 0RF Rx Instructions: As directed ondansetron 4 mg tablet,disintegrating 4 mg PO Q8H PRN (Reason: nausea and vomiting) Qty: 30 0RF clopidogrel 75 mg Tablet 75 mg PO DAILY Qty: 90 3RF glipizide 10 mg tablet 10 mg PO BID Rx Instructions: TAKE ONE TABLET BY MOUTH TWICE A DAY dapagliflozin propanediol [Farxiga] 10 mg tablet 10 mg PO DAILY Rx Instructions: TAKE ONE TABLET BY MOUTH DAILY No Action hydrocodone-acetaminophen 7.5-325 mg tablet 1 tab PO Q12H PRN (Reason: pain) 14 Days Qty: 28 0RF Discharge Orders: Discharge Order (Routine); Ordered 01/11/25 Ordered By: Hakan Keane Referrals: Lorena Rasmussen NP [Nurse Practitioner, Cardiology] - 4-7 days Hakan Keane M.D [Physician, Cardiology] Diet: Cardiac and Diabetic Activity: Increase activity as tolerated Patient Instructions: Peripheral Vascular Stent Placement (DC), Peripheral Vascular Angioplasty (DC) Print Language: Latvian Discharge Date/Time: 01/11/25 20:55 Attestations Medical Necessity Statement*: Care not expected to cross 2 midnights. Time Spent in Patient Care*: less than 30 min Quality Metrics Clinical Quality Measures: [ No reported AMI, CVA or VTE this stay] Coding Level of Care Code Acute Code for g Nohemi
== END 2025-01-11 20:55 | disposition home or self-care (01) ==
LOC: CCL 06:04 → ICU 09:52
PROVIDERS: Nurse Practitioner Family; PCP Nurse Practitioner; Visit Provider Internal Medicine
DX: I70.221 Atherosclerosis of native arteries of extremities with rest pain, right leg (principal); I70.92 Chronic total occlusion of artery of the extremities; T82.856A Stenosis of peripheral vascular stent, initial encounter; Z79.82 Long term (current) use of aspirin; F17.200 Nicotine dependence, unspecified, uncomplicated; E11.622 Type 2 diabetes mellitus with other skin ulcer; S81.801A Unspecified open wound, right lower leg, initial encounter; X58.XXXA Exposure to other specified factors, initial encounter
CPT/HCPCS: 36415; 37224; 75625; 75716; 85347; 85730; 96374; 96375; 99152; 99153; C1725; C1769; C1887; C1894; C2623; J0360; J1644; J2250; J2405; J3010; J7030; J9999; Q0163; Q9967

== ENCOUNTER → 2025-01-15 09:56 | Outpatient (BNVA) | payer MEDICARE, SELFPAY | PROVIDERS: PCP Nurse Practitioner; Visit Provider Nurse Practitioner Family | DX: I70.221 Atherosclerosis of native arteries of extremities with rest pain, right leg (principal); I70.222 Atherosclerosis of native arteries of extremities with rest pain, left leg; T82.856A Stenosis of peripheral vascular stent, initial encounter; M54.89 Other dorsalgia; Z72.0 Tobacco use; Z79.01 Long term (current) use of anticoagulants; Z79.82 Long term (current) use of aspirin | CPT/HCPCS: 36415; 80048; 99214 ==

== ENCOUNTER → 2025-01-30 09:08 | Outpatient (BNVA) | payer MEDICARE, SELFPAY | PROVIDERS: PCP Nurse Practitioner; Visit Provider Podiatrist Foot & Ankle Surgery | DX: E11.42 Type 2 diabetes mellitus with diabetic polyneuropathy (principal); E11.49 Type 2 diabetes mellitus with other diabetic neurological complication; I96 Gangrene, not elsewhere classified; I70.221 Atherosclerosis of native arteries of extremities with rest pain, right leg; Z89.422 Acquired absence of other left toe(s) | CPT/HCPCS: 99214 ==

== ENCOUNTER 2025-01-31 05:44 | Outpatient (CLI) | payer MEDICARE, MEDICAID, SELFPAY ==
[2025-01-31] VITALS (18 sets, daily range): BP systolic 112–151; BP diastolic 55–67; PULSE 60–142; RESP 10–19; TEMP 36.9; O2SAT 97–99; BMI 29.9
--- NOTE | 2025-01-31 06:00 | XACV_ITS ---
Ht: 165 cm Wt: 82 kg BSA: 1.96 m2 Any Known Allergies: Other Gender: Female : 1960 Exam Type: Invasive Peripheral Vascular Procedure(s): Procedure Description: Diagnostic procedure Procedure Description: Peripheral Cath Diagnostic Procedure Procedure Description: Lower extremities' angiography Procedure Description: Peripheral vascular Intervention Procedure Description: PV Balloon Procedure Description: PV Stent Procedure Description: Miscellaneous Procedure Description: ACT Exam Priority: Routine Lower Extremity Diagnostic Findings INDICATION: Resting left leg pain/ Critical limb ischemia. Left lower extremitiy findings: Left common iliac artery is patent. On the left external iliac artery is patent. Left internal iliac artery is patent. Left common femoral artery is patent. Left SFA has severe 90% proximal stenosis. Has severe diffuse disease in mid to distal vessel. Popliteal artery is totally occluded with reconstitution via collaterals of the distal popliteal artery. Below the knee patient has three-vessel runoff with diffuse disease of anterior tibial artery.. Lower Extremity Interventional Findings Left Proximal Superficial Femoral Artery: 90% stenosis treated with Omnilink Elite 6.0 X 59mm Stent, Lutonix DCB 5.0 X 150mm, and Omnilink Elite 6.0 X 39mm Stent. Left mid to distal Superficial Femoral Artery: 70% stenosis treated with Lutonix DCB 5.0 X 150mm. Left mid to distal Superficial Femoral Artery: 70% stenosis treated with Supera Stent 5.0 X 80mm. Left Popliteal Artery: 100% stenosis treated with AB ARMADA 35 OTW [id number] and Lutonix DCB 5.0 X 150mm. Procedure detail: Serial severe stenoses in left lower extremity were crossed with Glidewire. Heparin was administered to maintain anticoagulation. Totally occluded popliteal artery was dilated with 5.0 x 150 mm Lutonix drug-coated balloon. In the TP segment we dilated the vessel with a 4.0 x 100 mm balloon. Proximal to distal SFA was dilated with 5.0 x 9.50 mm Lutonix drug-coated balloon. Ostial to proximal SFA was then treated with 6.0 x 59 mm and 6.0 x 39 mm Omnilink stents. In the mid to distal SFA, 5.0x80mm Supera stent was placed. At this time final angiogram demonstrated excellent flow in the left lower extremity. 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 Left Distal Superficial Femoral Artery: 70% stenosis treated with AB ARMADA 35 OTW [id number] and Lutonix DCB 5.0 X 150mm. Left Mid-longitudinal Tibioperoneal Trunk: 70% stenosis treated with AB ARMADA 35 OTW [id number]. Conclusions Critical left lower extremity peripheral artery disease status post successful revascularization with balloon angioplasty and stents x 3 placement.. Left Proximal Superficial Femoral Artery was treated with two Stent and Balloon. Left Mid-longitudinal Superficial Femoral Artery was treated with Balloon. Left Mid-longitudinal Superficial Femoral Artery was treated with Stent. Left Distal Superficial Femoral Artery was treated with two Balloon. Left Distal Popliteal Artery was treated with two Balloon. Left Mid-longitudinal Tibioperoneal Trunk was treated with Balloon. Recommendations Dual antiplatelet therapy with aspirin and plavix. Smoking cessation strongly recommended and had discussion about very high risk of reocclusion of vessels if continues to smoke. She demonstrates understanding. Outpatient cardiology follow up in 2 weeks. Hemodynamic Data Phase:Rest AO : 187.0 / 58.0 ( 108.0 ) @ 8:34:00 AM 154.0 / 51.0 ( 92.0 ) @ 9:27:00 AM 145.0 / 50.0 ( 87.0 ) @ 9:58:00 AM Access Site Site: Right Femoral artery Sheath Size: 6 Fr Hemost... Method: Suture Hemost... Success: Successful Procedure Details Findings Procedure Consent Obtained. Admit Source: Out Patient. Pre-Procedure Time Out. Identified patient by full name and date of as verbalized by the patient/guarantor. Does the consent match the physician's order: Yes. Accurate & Complete Informed Consent: Yes. Inpatient/Outpatient History & Physical on Chart: Yes. If H&P is completed, is and addenduem needed: No; If yes, is the addendum complete: N/A. Visualize and Verify Site with Patient/Guarantor: N/A. Relevant Radiology Images available: N/A. The risks, benefits, and alternatives of sedation and/or procedure were discussed by physician. The patient agrees to continue. Procedure started. Current diagnosis: Critical left lower leg ischemia, left leg pain. PERRLA. Strong, equal hand hole filler bilaterally. Lungs clear x 5 lobes. IV Site on Arrival: 20 gauge in the left forearm. IV Fluids: 0.9% NaCl at KVO. 0 mL infused prior to labor arbitrator. Pre Procedural Pulses: bilateral dorsalis pedis was Doppled. Pre Procedural Pulses: bilateral posterior tibial was Doppled. Pre Procedural Pulses: bilateral radial was 2+. Oxygen started at 2liters/min via nasal canula. bilateral groins was prepped with chloroprep then draped in the usual sterile fashion. Baseline sample Acquired. HR: 66 BPM. Physician notified. Physician arrived. Physician scrubbed in. Time out performed with cath team. Lidocaine 1% infiltrated to the right groin. Arterial access obtained with micropuncture set. Lidocaine 1% infiltrated to the right groin. Glidewire in through sheath. UF catheter in over glidewire. Glidewire advanced to distal left popliteal. UF catheter out OTW. 6fr short sheath exchanged for 6fr 45cm flexor sheath over the glidewire. Left external iliac selected and arteriogram with runoff performed @ 10 mL/sec for a total of 30 mL. Seeker in over the wire advanced to peroneal trunk. Glidewire out. Hand injection through the seeker to visualize distal vessels. Glidewire in through seeker to peroneal. Seeker out otw. DSA imaging performed below the knee to better visualize distal vessels. Inflation number : 1 A AB ARMADA 35 OTW [id number] was prepped and advanced across the Distal Popliteal, Left , then inflated to 8 LULU for 1:31 seconds. DSA imaging performed to left popliteal. Balloon out over wire. Seeker catheter in over the glidewire. Glidewire out. 300cm runthrough wire in through seeker catheter peroneal artery. Seeker catheter out otw. Balloon inserted over the wire to the tibial peroneal trunk. Inflation number: 1 The AB ARMADA 35 OTW [id number] was reinflated across the Tibial Peroneal Trunk, Left, to 6 LULU for 1:00 seconds. Inflation number: 2 The AB ARMADA 35 OTW [id number] was reinflated across the Distal Popliteal, Left, to 8 LULU for 1:00 seconds. Inflation number: 1 The AB ARMADA 35 OTW [id number] was reinflated across the Distal Superficial Femoral, Left, to 8 LULU for 1:00 seconds. Balloon out over wire. Seeker in over the runthrough wire. Runthrough wire out. Glidewire in through seeker. Seeker catheter out otw. Balloon inserted over the wire to the popliteal. Inflation number : 3 A Lutonix DCB 5.0 X 150mm was prepped and advanced across the Distal Popliteal, Left , then inflated to 6 LULU for 1:32 seconds. Inflation number: 2 The Lutonix DCB 5.0 X 150mm was reinflated across the Distal Superficial Femoral, Left, to 6 LULU for 1:01 seconds. Inflation number: 1 The Lutonix DCB 5.0 X 150mm was reinflated across the Superficial Femoral, Left, to 6 LULU for 1:00 seconds. Inflation number: 2 The Lutonix DCB 5.0 X 150mm was reinflated across the Superficial Femoral, Left, to 6 LULU for 1:35 seconds. Balloon out. Left external iliac selected and arteriogram with runoff performed @ 10 mL/sec for a total of 30 mL. DSA imaging performed of SFA. Stent inserted over the wire to the superficial femoral. Inflation Number : 1 A Omnilink Elite 6.0 X 59mm Stent -Lot Number# [id number] EXP 11-28-2027 was prepped and advanced across the Proximal Superficial Femoral, Left. The stent was deployed at 11 LULU for 1:01 seconds. Stent balloon out over wire. ACT drawn. Results 215 seconds. Therapeutic limits - pre-heparin administration 90-150 seconds and monitoring heparin during a vascular procedure >250 seconds. Left external iliac selected and arteriogram with runoff performed @ 10 mL/sec for a total of 30 mL. Balloon inserted over the wire to the superficial femoral. Inflation number: 2 The Lutonix DCB 5.0 X 150mm was reinflated across the Proximal Superficial Femoral, Left, to 6 LULU for 1:00 seconds. Inflation number: 3 The Lutonix DCB 5.0 X 150mm was reinflated across the Superficial Femoral, Left, to 6 LULU for 0:57 seconds. Inflation number: 3 The Lutonix DCB 5.0 X 150mm was reinflated across the Distal Superficial Femoral, Left, to 6 LULU for 0:45 seconds. Balloon out. Left external iliac selected and arteriogram with runoff performed @ 10 mL/sec for a total of 30 mL. Stent inserted over the wire to the proximal superficial femoral. Inflation Number : 3 A Omnilink Elite 6.0 X 39mm Stent -Lot Number# [id number] EXP 09-29-2027 was prepped and advanced across the Proximal Superficial Femoral, Left. The stent was deployed at 8 LULU for 1:02 seconds. Stent balloon out over wire. Left external iliac selected and arteriogram with runoff performed @ 10 mL/sec for a total of 30 mL. Seeker in over the glidewire. Glidewire out. ACT drawn. Results 257 seconds. Therapeutic limits - pre-heparin administration 90-150 seconds and monitoring heparin during a vascular procedure >250 seconds. Runthrough wire in through seeker catheter, parked in popliteal. Seeker catheter out. Stent inserted over the wire to the superficial femoral. Inflation Number : 1 A Supera Stent 5.0 X 80mm -Lot Number# [id number] EXP 02-26-2026 was prepped and advanced across the Mid Superficial Femoral, Left. The stent was deployed at 0 LULU for 1:07 seconds. Runthrough wire out. Standard wire in through sheath. 6fr 45cm flexor sheath exchanged for new 6fr 11cm sheath over the standard wire. A Right femoral angiogram was performed to determine safe placement of closure device. A Suture was successful obtaining hemostatsis at the Right Femoral artery insertion site. Sheath(s) sutured into position with 2-0 silk and sterile 4x4's and Op-site applied over the site. No oozing or signs and symptoms of hematoma noted. Arterial sheath flushed and connected to tranducer and pressure bag with heparinized saline. Post Procedure: Pulses reassessed and unchanged. PERRLA. Strong, equal hand hole filler bilaterally. No VTE prophylaxis required. Post-op diagnosis: Severe SFA stenosis, totally occluded popliteal. Status post balloon angioplasty with placement of 3 stents to SFA. Complications: None. Estimated blood loss: 5mL-10mL. Responsiveness - Normal response to verbal stimuli; alert and oriented, PERRLA. Airway - Unaffected, no intervention required; spontaneous ventilation. Circulation: W/N/L, pulses unchanged. Nausea/Vomiting: No. Medication's Wasted: Lidocaine 1% = 3 mL. Medication's Wasted: Nitro = 49.2 mg. Medication's Wasted: Heparin = 2000 units. Medication's Wasted: Other = Fentanyl 50mcg. Total IV fluids: 80 mL. Procedure completed. Patient transferred by bed to CPRU. Vital chart was stopped. Procedure Medications Start: 7:19 AM Stop: 7:19 AM Medication: Versed Amount: 1 mg Route: I.V. Start: 7:19 AM Stop: 7:19 AM Medication: Fentanyl Amount: 50 mcg Route: I.V. Start: 7:23 AM Stop: 7:23 AM Medication: Fentanyl Amount: 25 mcg Route: I.V. Start: 7:31 AM Stop: 7:31 AM Medication: Versed Amount: 1 mg Route: I.V. Start: 7:31 AM Stop: 7:31 AM Medication: Fentanyl Amount: 25 mcg Route: I.V. Start: 7:43 AM Stop: 7:43 AM Medication: Versed Amount: 1 mg Route: I.V. Start: 7:43 AM Stop: 7:43 AM Medication: Fentanyl Amount: 25 mcg Route: I.V. Start: 7:47 AM Stop: 7:47 AM Medication: Heparin Amount: 5000 units Route: I.V. Start: 7:49 AM Stop: 7:49 AM Medication: Versed Amount: 1 mg Route: I.V. Start: 7:49 AM Stop: 7:49 AM Medication: Fentanyl Amount: 50 mcg Route: I.V. Start: 7:37 AM Stop: 7:37 AM Medication: Fentanyl Amount: 25 mcg Route: I.V. Start: 7:52 AM Stop: 7:52 AM Medication: Heparin Amount: 1000 units Route: I.V. Start: 8:02 AM Stop: 8:02 AM Medication: Hydralazine Amount: 10 mg Route: I.V. Start: 8:06 AM Stop: 8:06 AM Medication: Fentanyl Amount: 25 mcg Route: I.V. Start: 8:11 AM Stop: 8:11 AM Medication: Fentanyl Amount: 50 mcg Route: I.V. Start: 8:13 AM Stop: 8:13 AM Medication: Versed Amount: 1 mg Route: I.V. Start: 8:16 AM Stop: 8:16 AM Medication: Fentanyl Amount: 25 mcg Route: I.V. Start: 8:23 AM Stop: 8:23 AM Medication: Versed Amount: 1 mg Route: I.V. Start: 8:27 AM Stop: 8:27 AM Medication: Nitrogylcerin Amount: 400 mcg Route: I.A. Start: 8:33 AM Stop: 8:33 AM Medication: Heparin Amount: 1000 units Route: I.V. Start: 8:35 AM Stop: 8:35 AM Medication: Fentanyl Amount: 50 mcg Route: I.V. Start: 8:44 AM Stop: 8:44 AM Medication: Fentanyl Amount: 50 mcg Route: I.V. Start: 8:47 AM Stop: 8:47 AM Medication: Nitrogylcerin Amount: 400 mcg Route: I.A. Start: 8:55 AM Stop: 8:55 AM Medication: Heparin Amount: 1000 units Route: I.V. Start: 8:55 AM Stop: 8:55 AM Medication: Fentanyl Amount: 25 mcg Route: I.V. Start: 9:00 AM Stop: 9:00 AM Medication: Fentanyl Amount: 25 mcg Route: I.V. Start: 9:05 AM Stop: 9:05 AM Medication: Plavix Amount: 300 mg Route: P.O. I, the attending physician, have reviewed and verified all procedure medications. Yes, all medications given per verbal order History/Risk Factors Hypertension: No Dyslipidemia: No Peripheral Arterial Disease (PAD): Yes Obesity: No Renal Disease: No Tobacco Use: Current/Recent(w/in 1 year) Prior Interventions PCI: No CABG: No Valve Surgery: No Report Signatures Finalized by Hakan Keane MD on 02/10/2025 01:22 PM
[2025-01-31] MEDS: diphenhydrAMINE 50 mg Capsule PO (06:20)
[2025-01-31 06:31] LABS: Basophils # 0.1 10^3/uL (0.0-0.1); Basophils % 0.7 %; Eosinophils # 0.3 10^3/uL (0.0-0.8); Hematocrit 42.4 % (36-47); Lymphocytes % 23.7 %; Mean Corpuscular HGB Conc 33.3 g/dL (30-55); Mean Corpuscular Hemoglobin 30.7 pg (27-33); Mean Corpuscular Volume 92.4 fl (85-98); Mean Platelet Volume 8.5 fL (7.4-10.4); Monocytes # 0.8 10^3/uL (0.2-0.9); Monocytes % 9.1 %; Neutrophils % 62.4 %; Nucleated Red Blood Cells % 0 %; Platelet Count 228 10^3/cmm (157-399); Red Blood Count 4.59 10^6/uL (3.85-5.65); White Blood Count 8.34 10^3/uL (3.29-11.43)
--- NOTE | 2025-01-31 07:17 | W.PM.OPSUD ---
Surgery/Procedure H&P Update DATE OF PROCEDURE: January 31, 2025 DATE H&P PERFORMED: 01/31/25 H&P UPDATE INFORMATION: I have reviewed H&P completed within last 30 days, I have examined patient prior to procedure and No changes to prior documentation PREOP DIAGNOSIS: Resting left leg pain/ Critical limb ischemia PRIMARY INDICATION FOR PROCEDURE: Resting left leg pain/ Critical limb ischemia PLANNED PROCEDURE: Operation Date: 01/31/25 07:00 Proposed Procedures p Peripheral Diagnostic - Peripheral Angio unilateral, Left(Left) - Hakan Keane M.D Possible peripheral intervention PATIENT REASSESSED PRIOR TO SEDATION, WITH NO CHANGE NOTED: Yes PHYSICAL EXAM: alert, oriented x 3, clear to auscultation bilaterally and regular rate & rhythm AIRWAY EVAL/ANESTHESIA PLAN: normal airway, ASA III, Local Anesthesia, Risks, benefits & alternatives of sedation and/or procedure discussed and Patient agrees to continue as planned ADDITIONAL INFORMATION: Moderate sedation
--- NOTE | 2025-01-31 09:14 | P.PCN_ITS ---
Procedure Note: Date of procedure: 01/31/25 Pre-procedure diagnosis: Critical limb ischemia of left lower extremity Post-procedure diagnosis: other (S/p successful revascularization of SFA with balloon angioplasty and 3 stents and of popliteal artery to TP trunk with balloon angioplasty) Procedure: Severe diffuse left lower extremity peripheral artery disease starting from proximal SFA all the way to the foot. Popliteal artery is totally occluded with reconstitution via collaterals distally. SFA was revascularized with drug- coated balloon angioplasty and 3 stents. Popliteal artery and TP trunk underwent revascularization with balloon angioplasty. Dual antiplatelet therapy with aspirin and plavix Again emphasized the need for smoking cessation as without that, she will develop reocclusion of treated vessels. Outpatient cardiology follow up. Estimated blood loss (mL): 10 Complications: None Condition: stable Disposition: floor Coding Level of Care Code Acute Code for Angeles Song
--- NOTE | 2025-01-31 09:15 | PC.NURSE ---
Received the patient back from the ear mold laboratory technician via bed s/p intervention of the left SFA. Patient drowsy but awakens easily to voice. A & 0 x 3. shelter monitor placed and vital signs obtained. Right Femoral access site with intact 6fr sheath sutured in and connected to pressure bag. Groin soft with no bleeding or hematoma noted. Doppled right PT pulses. NS infusing at 75cc/hr per MD order. Will check ACT at 1130. No other assessment changes noted from pre cath assessment. Family at bedside. No concerns voiced at this time. [place] transfer to floor bed when one becomes available.
--- NOTE | 2025-01-31 11:45 | PC.NURSE ---
1130: Verbal orders received from Dr. Keane to draw an ACT. 1135: ACT of 181 reported via telephone to Dr. Keane. 1145: Dr. Keane at bedside. Mynx closure device deployed at bedside using sterile technique. Groin soft with no bleeding or hematoma noted. Site covered with an opsite. The patient tolerated well. Bedrest x 4 hours explained to the patient with her verbalization voiced.
--- NOTE | 2025-01-31 13:08 | PC.NURSE ---
Report called to CHANDRIKA Ding. Patient then tranferred via wheelchair to ICU 3. All belongings with patient.
--- NOTE | 2025-01-31 13:40 | PC.NURSE ---
Report called to CHANDRIKA Mullins. [place] [id number] with spouse and all belongings with her.
== END 2025-01-31 18:10 | disposition home or self-care (01) ==
LOC: CCL 13:43 → CSU 13:49
PROVIDERS: PCP Nurse Practitioner; Visit Provider Internal Medicine
DX: I70.222 Atherosclerosis of native arteries of extremities with rest pain, left leg (principal); I70.92 Chronic total occlusion of artery of the extremities; Z79.82 Long term (current) use of aspirin; E11.40 Type 2 diabetes mellitus with diabetic neuropathy, unspecified; F17.200 Nicotine dependence, unspecified, uncomplicated
CPT/HCPCS: 36415; 37226; 37228; 75710; 85025; 85347; 96374; 99152; 99153; C1725; C1760; C1769; C1876; C1887; C1894; C2623; G0269; J0360; J1644; J2250; J3010; J3490; J7030; J9999; Q0163; Q9967

== ENCOUNTER → 2025-02-13 08:59 | Outpatient (BNVA) | payer MEDICARE, MEDICAID, SELFPAY | PROVIDERS: PCP Nurse Practitioner; Visit Provider Podiatrist Foot & Ankle Surgery | DX: Z89.422 Acquired absence of other left toe(s) (principal); E11.42 Type 2 diabetes mellitus with diabetic polyneuropathy; E11.49 Type 2 diabetes mellitus with other diabetic neurological complication; I70.221 Atherosclerosis of native arteries of extremities with rest pain, right leg | CPT/HCPCS: 99213 ==

== ENCOUNTER → 2025-03-05 09:13 | Outpatient (BNVA) | payer MEDICARE, SELFPAY | PROVIDERS: PCP Nurse Practitioner; Visit Provider Podiatrist Foot & Ankle Surgery | DX: Z89.422 Acquired absence of other left toe(s) (principal); E11.42 Type 2 diabetes mellitus with diabetic polyneuropathy; E11.49 Type 2 diabetes mellitus with other diabetic neurological complication; I96 Gangrene, not elsewhere classified; I70.221 Atherosclerosis of native arteries of extremities with rest pain, right leg | CPT/HCPCS: 99213 ==

== ENCOUNTER → 2025-04-03 08:36 | Outpatient (BNVA) | payer MEDICARE, SELFPAY | PROVIDERS: PCP Nurse Practitioner; Visit Provider Nurse Practitioner | DX: E11.9 Type 2 diabetes mellitus without complications (principal) | CPT/HCPCS: 83036 ==